=== PATIENT | female | born 1935 | race Caucasian/White ===

== ENCOUNTER 2018-02-21 13:20 | Day surgery (SDC) | payer MEDICARE ==
[~2018-02-21] VITALS: Ht 160 cm; Wt 61.9 kg
[~2018-02-21 13:20] MED LIST: ABAT250V; ALPR1; ALPR1 PO; AMIT10; AMIT75 PO; ASPI325 PO; ATOR10 PO; Bactrim Ds Tab1 EACH PO; CEPH250SUA PO; CONEST.625; CONEST.625 PO; DIGO.25; ESTR2; FURO20; FURO20 PO; HYDACE5 PO; LEVSOD50 PO; LEVSOD75; LEVSOD75 PO; LORA.5 PO; LORA1 PO; MECL25 PO; METO25ER PO; METO50 PO; Micro-K10 MEQ; OMEP20ER PO; OMEPRAZOLE MAGN20 MG; PARICALCITOL1 MCG PO; POTA10T; PRED20 PO; RISE35; ROSU10TA PO; RXHYD5325 PO; SEPTRA DS BID; SIMV20; SULTRIDS; SULTRIDS PO; TRAM50 PO; Zofran Odt8 MG SL
== END 2018-02-21 15:39 | disposition home or self-care (01) ==
LOC: ORSCSDS 13:20
DX: R13.10 Dysphagia, unspecified (principal); K22.2 Esophageal obstruction; K22.10 Ulcer of esophagus without bleeding; I10 Essential (primary) hypertension; G47.33 Obstructive sleep apnea (adult) (pediatric); E07.9 Disorder of thyroid, unspecified; Z79.899 Other long term (current) drug therapy
CPT/HCPCS: 88305; J7120

== ENCOUNTER 2019-07-31 12:34 | Day surgery (SDC) | payer MEDICARE ==
[~2019-07-31] VITALS: Ht 160 cm; Wt 62.6 kg
--- NOTE | 2019-07-31 13:18 | NUR ---
07/31/19 1318 Piper Santillan 1 TRY, VALVE IN WAY 2 TRY NAZARIO KAPOOR
== END 2019-07-31 14:30 | disposition home or self-care (01) ==
LOC: ORSCSDS 12:34
PROVIDERS: Internal Medicine Gastroenterology
PROC: 0DB58ZX Excision of Esophagus, Via Natural or Artificial Opening Endoscopic, Diagnostic (ICD-10-PCS; principal; 2019-07-31 13:45)
PROC: 0D757ZZ Dilation of Esophagus, Via Natural or Artificial Opening (ICD-10-PCS; principal; 2019-07-31 13:45)
DX: R13.10 Dysphagia, unspecified (principal); K20.9 Esophagitis, unspecified; R19.7 Diarrhea, unspecified; I25.2 Old myocardial infarction; I10 Essential (primary) hypertension; G47.30 Sleep apnea, unspecified; J45.909 Unspecified asthma, uncomplicated; D64.9 Anemia, unspecified; K22.2 Esophageal obstruction; K44.9 Diaphragmatic hernia without obstruction or gangrene; Z79.899 Other long term (current) drug therapy
CPT/HCPCS: 88305; J2704; J7120

== ENCOUNTER 2019-11-05 18:50 | Inpatient (IN) | payer MEDICARE ==
[~2019-11-05] VITALS: Ht 160 cm; Wt 60.4 kg
[~2019-11-05 18:50] MED LIST changes: -ATOR10 PO; -LEVSOD50 PO
[2019-11-05] MEDS ORDERED: ESTRADIOL1 M1 PO (22:04)
[2019-11-05] MEDS ORDERED: Alprazolam2 MG PO (22:05)
[2019-11-05] MEDS ORDERED: Hydrocortiso453.6 G1 TOP (22:06)
[2019-11-05] MEDS ORDERED: ATOR40TA PO (22:07)
[2019-11-05] MEDS ORDERED: Sulfamethoxazo1 EAC4 PO (22:07)
[2019-11-05] MEDS ORDERED: FUROSEMIDE20 MG PO (22:08)
[2019-11-05] MEDS ORDERED: Klor-Con 1010 MEQ PO (22:09)
[2019-11-05] MEDS ORDERED: PARI1 PO (22:09)
[2019-11-05] MEDS ORDERED: OMEPRAZOLE20 MG PO (22:10)
[2019-11-05] MEDS ORDERED: METO50ER PO (22:11)
[2019-11-05] MEDS ORDERED: LEVSOD75 PO (22:12)
--- NOTE | 2019-11-05 23:00 | NUR ---
ED ADMIT VIA GUERNEY. A +O CONVERSIVE. AWARE OF MEDS AND W/ SPOUSE HELP RECALLS HEALTH ISSUES AND NEEDS FOR CARE AND DUE TO SEE DR TRIPP THIS WEEK. DENIES ANY PAIN BUT OCCASIONALLY IF MOVING SUDDENLY REPORTS SOME RT RIB PAIN. PER HX . RESP EASY REGULAR. RA WNL SAT. AF AT REST 105. EXTREMELY WEAK AND STAND BY ASSIST. YELLOW STOOL SENT FOR GI PANEL LIQUID STOOL . NO GI DISTRESS AND HS SNACK GIVEN.
[2019-11-06 03:25] LABS: Adenovirus F 40/41 Not Detected (NOT DETECT); Astrovirus Not Detected (NOT DETECT); Campylobacter Sp Not Detected (NOT DETECT); Cryptosporidium Not Detected (NOT DETECT); Cyclospora Cayetanensis Not Detected (NOT DETECT); E. Coli O157 Not Detected (NOT DETECT); Entamoeba Histolytica Not Detected (NOT DETECT); Enteroaggregative E. coli-EAEC Not Detected (NOT DETECT); Enteropathogenic E. coli-EPEC Not Detected (NOT DETECT); Enterotoxigenic E. coli-ETEC Not Detected (NOT DETECT); Giardia Lamblia Not Detected (NOT DETECT); Norovirus GI/GII Not Detected (NOT DETECT); Plesiomonas Shigelloides Not Detected (NOT DETECT); Rotavirus A Not Detected (NOT DETECT); Salmonella Sp Not Detected (NOT DETECT); Sapovirus Not Detected (NOT DETECT); Shiga Toxin-prod E. coli-STEC Not Detected (NOT DETECT); Shigella/Enteroin E. coli-EIEC Not Detected (NOT DETECT); Vibrio Cholerae Not Detected (NOT DETECT); Vibrio Sp Not Detected (NOT DETECT); Yersinia Enterocolitica Not Detected (NOT DETECT)
[2019-11-06 04:11] LABS: BASOPHILS ABSOLUTE AUTO 0.03 K/mm3 (0.00-0.23); BASOPHILS PERCENT AUTO 0 % (0-2); EOSINOPHILS ABSOLUTE AUTO 0.17 K/mm3 (0.00-0.68); EOSINOPHILS PERCENT AUTO 2 % (0-6); Hematocrit 36.2 % (33.0-51.0); IMMATURE GRAN ABSOLUTE AUTO 0.01 K/mm3 (0.00-0.10); IMMATURE GRAN PERCENT AUTO 0 % (0-1); LYMPHOCYTES ABSOLUTE AUTO 4.22 K/mm3 (0.84-5.20); LYMPHOCYTES PERCENT AUTO 51 % (21-46); MONOCYTES ABSOLUTE AUTO 1.03 K/mm3 (0.16-1.47); MONOCYTES PERCENT AUTO 12 % (4-13); Mean Corpuscular HGB 36.1 pg (26.0-34.0); Mean Corpuscular HGB Conc 33.1 g/dL (31.5-36.5); Mean Corpuscular Volume 109 fL (80-100); Mean Platelet Volume 9.2 fL (9.1-12.4); NEUTROPHILS PERCENT AUTO 35 % (41-73); Platelet Count 212 K/mm3 (150-400); RDW Coefficient Variation 12.5 % (11.7-14.2); RDW Standard Deviation 50.3 fL (35.1-46.3); Red Blood Cell Count 3.32 M/mm3 (3.80-5.20); White Blood Cell Count 8.36 K/mm3 (4.00-11.30)
[2019-11-06 04:28] LABS: Bun/Creatinine Ratio 23.9 (12.0-20.0); Calcium, Blood 8.8 mg/dL (8.5-10.1); Creatinine, Blood 1.09 mg/dL (0.40-1.00); Magnesium, Blood 1.9 mg/dL (1.6-2.4); Potassium, Blood 4.1 mmol/L (3.5-5.5)
--- NOTE | 2019-11-06 06:00 | NUR ---
SHIFT SUMMARY. NO CHANGE FROM ABOVE. AWAKE MOST OF NOC AFTER XANAX AND VERY TALKATIVE AND CHEERFUL . AF NOT SUSTAINING OVER 120. AT REST OR WHEN OOB TO BSC. NO PRN IV LOPRESSOR.
--- NOTE | 2019-11-06 17:02 | NUR ---
SHIFT SUMMARY PT ALERT AND ORIENTED. VS STABLE. HR AFIB RANGING FROM 100-120. BP STABLE. PT DENIES ANY CP. O2 SATS REMAIN ABOVE 90% ON RA. PT ABLE TO AMBULATE TO BSC NEEDED. DR. CONDE INCREASED MIND READER DOSE OF METOPROLOL. FAMILY AT BEDSIDE. WILL CONTINUE TO MONITOR AND REPORT TO ONCOMING RN. CALL LIGHT IN REACH.
--- NOTE | 2019-11-06 20:55 | NUR ---
PATIENT CALLED STAFF TO ROOM TO REPORT A PAIN IN LEFT ARMPIT RATED 7/10 [place] THAT LASTED A SECOND WHILE PATIENT WAS LAYING IN BED WATCHING TV; PATIENT REPORTS ALL HER BONES HURT SOMETIMES WHEN TURNING; PATIENT REPORTS SHE WANTED TO LET THE DOCTOR KNOW. PATIENT WILL CALL STAFF IF PAIN OCCURS AGAIN. CHARGE NURSE RADHA AWARE; NO CHANGES ON TELE; WILL CONTINUE TO MONITOR AND ASSESS UNTIL END OF SHIFT.
--- NOTE | 2019-11-06 22:12 | NUR ---
ASSUMED CARE OF PATIENT AT APPROXIMATELY 1905 FROM SHAREE Richards RN. PATIENT ALERT AND ORIENTED X4; FORGETFUL AT TIMES; AT BEDSIDE DURING BEDSIDE REPORT. PATIENT DENIES PAIN, NUMBNESS, TINGLING, DIZZINESS OR NAUSEA. PATIENT REPORTS DIZZINESS SOMETIMES WHENS SHE AMBULATES. SEE PREVIOUS NOTE IN PAIN REPORTED BY PATIENT. AFIB ON TELE W/ A RATE OF 90-115; HEART RATE INCREASES TO 130-140'S WITH AMBULATION TO BEDSIDE COMMODE; RECOVERS QUICKLY. ONE ASSIST TO BEDSIDE COMMODE. OXYGEN SATURATION ABOVE 90% ON ROOM AIR. PIV S/L. PATIENT CURRENTLY RESTING IN BED; NINO LIGHT IN REACH; BED IN LOWEST POSISTION; BED ALARM ON; WILL CONTINUE TO MONITOR AND ASSESS UNTIL END OF SHIFT.
[2019-11-07 04:30] LABS: Bun/Creatinine Ratio 23.5 (12.0-20.0); Calcium, Blood 9.2 mg/dL (8.5-10.1); Creatinine, Blood 1.02 mg/dL (0.40-1.00)
[2019-11-07 04:35] LABS: Thyroid Stimulating Hormone 1.57 uIU/mL (0.360-4.800)
--- NOTE | 2019-11-07 06:18 | NUR ---
PATIENT HAS SLEPT ABOUT THREE HOURS. PATIENT REPORTS SHE CANNOT SLEEP DUE TO SCDS, FREQUENCY OF URINATING AND HEART RATE. PATIENT REPORTS SHE WOKE UP WITH CALL LIGHT IN HAND AND HAD HIT HER CHIP WHILE SHE WAS SLEEPING; "I THOUGHT I CHIPPED A TOOTH". NO CHIP TOOTH NOTED. WILL CONTINUE TO MONITOR AND ASSESS UNTIL END OF SHIFT.
--- NOTE | 2019-11-07 08:00 | NUR ---
pt laying in bed awake a/ox3, pleasant and cooperative with care, follows commands well, denies pain, states she didn't sleep much last night, lungs are clear dim in bases, resp even and unlabord, is on r/a, hrirr, tele in place running afib in the 120's to 130's, is higher with any activity, no edema noted, ppp+1, cap refill <3sec, vs stable, afebrile, iv site to left ac is clear and patent, btx4, abd flat soft nontender, voids without diff, skin c/w/d, maew, kingsley, call light in reach.
--- NOTE | 2019-11-07 11:51 | NUR ---
The pt called saying that she was feeling chest pressure and difficulty breathing. Heart rate is 100s, still atrial fibrillation, but rate better controlled since she has been on the amiodarone drip. Lung sounds auscultated, and no adventitious sound noted save for fine inspiratory crackles in the left base. She is lying down, HOB elevated at 30 degrees, no use of accessory muscles, no retractions, RR is 14-16/min without any observable dyspnea or abnormal respiratory effort. She is able to sit up so that I can listen to her lung sounds, but lies back down and states that her breathing and discomfort are unchanged and that lying down is more comfortable for her. Vital signs were taken, and sent via CApsule. She states that her discomfort started 15 minutes ago. She appears calm, and is carry on lots of conversation. Able to complete full sentences without stopping for a breath.
--- NOTE | 2019-11-07 12:16 | NUR ---
New orders received from Dr. Butler by phone. EKG was done, shows afib at 100 bpm. SPO2 99% on room air, Oxygen at 2 l/min applied by n.c. by primary RN Sandra Huang. IV lasix was given as ordered, and troponin is being drawn at this time by the surgical tech. Pt continues to appear calm, without distress. She states that her breathing still feels as difficult as before, but that her chest pressure is lessened. STates he is having a hard time quanitfying the discomfort. She is lying in bed, supine, no accesory muscle use, no retractions, respiratory rate is 16/min and HOB is elevated at30 degrees. She states that she wants to eat after she uses the commode at the bedside.
--- NOTE | 2019-11-07 14:00 | NUR ---
PT FEELING BETTER, UP TO BSC WITHOUT DIFF, NO NEEDS OR COMPLAINTS, RATES COMING DOWN. CALL LIGHT IN REACH.
--- NOTE | 2019-11-07 18:17 | NUR ---
PT VISITING WITH HER FAMILY, DENIES ANY COMPLAINTS. IS CONFUSED TO HER MEDS, AND WILL ASK A NUMBER OF TIMES WHAT IT IS. NO FURTHER CHANGES, CALL LIGHT IN REACH.
--- NOTE | 2019-11-08 05:56 | NUR ---
SHIFT SUMMARY PT RESTING IN ROOM COMFORTABLY AT THIS TIME. NO ACUTE CHANGES IN STATUS T/O NIGHT. PT SLEPT WELL AFTER BEING MEDICATED FOR ANXIETY AT 2330. RESP EVEN UNLABORED ON RA W/ SATS >92%. PT REPORTED FEELING "FLUTTERING" IN HER CHEST EARLY IN SHIFT AND THAT "MY HEART FEELS EXHAUSTED". PT EDUCATED ON IRREGULARITY OF AFIB AND SYMPTOMS THAT MAY BE FELT UNTIL HEART RHYTHM CONVERTS. AMIODARONE CONTINUES TO INFUSE AT HALF DOSE PER EMAR. TITRATION IN DOSE WAS LATE ON DAY SHIFT, [facility] WAS CALLED AND ORDERS TO STOP GTT AT 0900 THIS AM TO COMPENSATE. WILL REPORT ON TO ONCOMING RN ABOUT CHANGE IN STOP TIME. PT WAS CONFUSED THIS AM BUT REORIENTED WELL. BED ALARM ON FOR SAFETY. CALL LIGHT IN REACH.
--- NOTE | 2019-11-08 07:30 | NUR ---
ASSUMED CARE OF PT. IN NO ACUTE DISTRESS AT THIS TIME, DENIES ANY PAIN OR DISCOMFORT. DENIES ANY NEEDS AT THIS TIME. WILL CONTINUE TO MONITOR.
--- NOTE | 2019-11-08 08:16 | NUR ---
PT CONVERTED TO NORMAL SINUS RHYTHM AT 0730. DR. PIZANO CALLED TO NOTIFY OF RHYTHM CHANGE. ORDERS RECEIVED.
--- NOTE | 2019-11-08 11:36 | NUR ---
HAD A CONVERSATION WITH PT REGARDING PLAN FOR DISCHARGE. PT STATES "I'M ANGRY. THAT DOCTOR THAT CAME INTO SEE ME HAD NO BUSINESS TELLING ME THAT SHE WAS GOING TO SEND ME HOME WITHOUT KNOWING WHAT WAS GOING ON ACCORDING TO THE NURSES THAT WERE TAKING CARE OF ME. I THOUGHT I HAD MORE TESTS TO BE DONE BEFORE GOING HOME, NO ONE SAID ANYTHING TO ME. I DON'T WANT TO SEE THAT DOCTOR EVER AGAIN." INFORMED PT OF PLAN TO DISCHARGE HOME AND ENCOURAGED TO CONTACT FAMILY.
[2019-11-08] MEDS ORDERED: Amiodarone HCl200 MG PO (12:28)
[2019-11-08] MEDS ORDERED: XARELTO15 MG PO (12:30)
[2019-11-08] MEDS ORDERED: FURO20 PO (12:32)
[2019-11-08] MEDS ORDERED: METO25 PO (12:32)
--- NOTE | 2019-11-08 13:45 | NUR ---
PT DISCHARGED HOME WITH , ESCORTED VIA W/C. ALL PERSONAL BELONGINGS SENT HOME WITH PT. IV AND TELEMETRY DISCONTINUED.
== END 2019-11-08 13:43 | disposition home or self-care (01) | DRG 308 ==
LOC: ER 18:50 → PCU 18:51
PROVIDERS: Internal Medicine; ADMIT Family Medicine
DX: I48.91 Unspecified atrial fibrillation (principal); I50.31 Acute diastolic (congestive) heart failure; I13.0 Hypertensive heart and chronic kidney disease with heart failure and stage 1 through stage 4 chronic kidney disease, or unspecified chronic kidney disease; M31.31 Wegener's granulomatosis with renal involvement; N18.3 Chronic kidney disease, stage 3 (moderate); F41.9 Anxiety disorder, unspecified; E03.9 Hypothyroidism, unspecified; E78.5 Hyperlipidemia, unspecified; I36.1 Nonrheumatic tricuspid (valve) insufficiency; K52.9 Noninfective gastroenteritis and colitis, unspecified; R07.9 Chest pain, unspecified; I08.3 Combined rheumatic disorders of mitral, aortic and tricuspid valves
CPT/HCPCS: 0097U; 36415; 71046; 80048; 80053; 83735; 83880; 84443; 84484; 85025; 93005; 93010; 93308; 93321; 96374; 96376; 97162; 97530; 99285-25; G0378; J0282; J1940; J2405; J7060

== ENCOUNTER → 2020-08-04 | Outpatient (CLI) | payer MEDICARE ==
[~2020-08-04] MED LIST changes: +ATOR40TA PO; +Alprazolam2 MG PO; +Amiodarone HCl200 MG PO; +CYCL10 PO; +DOCU100 PO; +ESTRADIOL1 M1 PO; +FUROSEMIDE20 MG PO; +HYDROCORTISONE30 GM TOP; +Hydrocortiso453.6 G1 TOP; +Klor-Con 1010 MEQ PO; +METO25 PO; +METO50ER PO; +Norco 5-325 Ta1 EACH PO; +OMEPRAZOLE20 MG PO; +ONDA4ODT SL; +PARI1 PO; +Sulfamethoxazo1 EAC4 PO; +XARELTO15 MG PO; +XARELTO20 MG PO
[2020-08-04 15:28] LABS: Source, Urine Catheter
[2020-08-04 17:02] LABS: Bilirubin, Urine Neg (Neg); Blood, Urine 4+ (Neg); Glucose Qualitative, Urine Neg (Neg); Ketones, Urine Neg (Neg); Leukocyte Esterase, Urine 3+ (Neg); Nitrite, Urine Neg (Neg); Protein, Urine Neg (Neg); Specific Gravity, Urine 1.005 (1.003-1.022); Urobilinogen, Urine NORM (Normal)
[2020-08-04 17:09] LABS: Appearance, Urine Hazy (Clear); Color, Urine Pale Yellow (P-Yellow)
[2020-08-04 17:10] LABS: Bacteria Many /hpf; Squamous Epithelial Cells Few /hpf (Few); White Blood Cells, Urine TNTC /hpf (0-5)
== END | disposition home or self-care (01) ==
LOC: LAB SHORT 15:23 → LAB 15:23
PROVIDERS: Internal Medicine
DX: R50.9 Fever, unspecified (principal); R53.1 Weakness; R82.90 Unspecified abnormal findings in urine
CPT/HCPCS: 81001; 87077; 87086; 87186

== ENCOUNTER → 2020-08-07 | Outpatient (CLI) | payer MEDICARE ==
[2020-08-07 17:11] LABS: BASOPHILS ABSOLUTE AUTO 0.04 K/mm3 (0.00-0.23); BASOPHILS PERCENT AUTO 1 % (0-2); EOSINOPHILS ABSOLUTE AUTO 0.13 K/mm3 (0.00-0.68); EOSINOPHILS PERCENT AUTO 2 % (0-6); Hematocrit 33.7 % (33.0-51.0); Hemoglobin 10.9 g/dL (11.5-16.0); IMMATURE GRAN ABSOLUTE AUTO 0.03 K/mm3 (0.00-0.10); IMMATURE GRAN PERCENT AUTO 0 % (0-1); LYMPHOCYTES ABSOLUTE AUTO 1.69 K/mm3 (0.84-5.20); LYMPHOCYTES PERCENT AUTO 22 % (21-46); MONOCYTES ABSOLUTE AUTO 1.27 K/mm3 (0.16-1.47); MONOCYTES PERCENT AUTO 17 % (4-13); Mean Corpuscular HGB Conc 32.3 g/dL (31.5-36.5); Mean Corpuscular Volume 111 fL (80-100); Mean Platelet Volume 8.5 fL (9.1-12.4); NEUTROPHILS ABSOLUTE AUTO 4.44 K/mm3 (1.96-9.15); NEUTROPHILS PERCENT AUTO 59 % (41-73); Platelet Count 294 K/mm3 (150-400); RDW Coefficient Variation 14.1 % (11.7-14.2); RDW Standard Deviation 58.2 fL (35.1-46.3); Red Blood Cell Count 3.03 M/mm3 (3.80-5.20)
[2020-08-07 17:47] LABS: Alanine Aminotransfer (ALT/SGP 21 U/L (12-78); Albumin, Blood 3.1 g/dL (3.4-5.0); Albumin/Globulin Ratio 0.7 (0.8-1.8); Alk Phos 126 U/L (50-136); Anion Gap 8 mmol/L (6-16); Aspartate Aminotrans (AST/SGOT 16 U/L (12-37); Bilirubin, Total 0.2 mg/dL (0.1-1.0); Blood Urea Nitrogen 27 mg/dL (8-24); Bun/Creatinine Ratio 24.3 (12.0-20.0); CO2, Blood 25 mmol/L (21-32); Calcium, Blood 9.2 mg/dL (8.5-10.1); Chloride, Blood 108 mmol/L (98-108); Creatinine, Blood 1.11 mg/dL (0.40-1.00); Globulin, Blood 4.4 g/dL (2.2-4.0); Glomerular Filtration Rate 50 (60-); Glucose, Blood 83 mg/dL (70-99); Potassium, Blood 4.4 mmol/L (3.5-5.5); Sodium, Blood 141 mmol/L (136-145); Total Protein, Blood 7.5 g/dL (6.4-8.2)
== END | disposition home or self-care (01) ==
LOC: LAB 16:00 → LAB SHORT 16:00
PROVIDERS: Internal Medicine
DX: Z79.01 Long term (current) use of anticoagulants (principal); Z51.81 Encounter for therapeutic drug level monitoring; R50.9 Fever, unspecified; R53.1 Weakness; I13.0 Hypertensive heart and chronic kidney disease with heart failure and stage 1 through stage 4 chronic kidney disease, or unspecified chronic kidney disease; I50.30 Unspecified diastolic (congestive) heart failure; N18.30 Chronic kidney disease, stage 3 unspecified; I48.20 Chronic atrial fibrillation, unspecified
CPT/HCPCS: 80053; 84100; 85025

== ENCOUNTER 2021-11-21 17:35 | Emergency (ER) | payer MEDICARE, OTHER ==
[~2021-11-21] VITALS: Ht 160 cm; Wt 59.0 kg
[2021-11-21 18:47] LABS: BASOPHILS ABSOLUTE AUTO 0.03 K/mm3 (0.00-0.23); BASOPHILS PERCENT AUTO 0 % (0-2); EOSINOPHILS ABSOLUTE AUTO 0.06 K/mm3 (0.00-0.68); EOSINOPHILS PERCENT AUTO 1 % (0-6); Hematocrit 34.1 % (33.0-51.0); Hemoglobin 11.4 g/dL (11.5-16.0); IMMATURE GRAN ABSOLUTE AUTO 0.03 K/mm3 (0.00-0.10); IMMATURE GRAN PERCENT AUTO 0 % (0-1); LYMPHOCYTES ABSOLUTE AUTO 1.58 K/mm3 (0.84-5.20); LYMPHOCYTES PERCENT AUTO 16 % (21-46); MONOCYTES ABSOLUTE AUTO 1.16 K/mm3 (0.16-1.47); MONOCYTES PERCENT AUTO 12 % (4-13); Mean Corpuscular HGB 37.9 pg (26.0-34.0); Mean Corpuscular HGB Conc 33.4 g/dL (31.5-36.5); Mean Corpuscular Volume 113 fL (80-100); Mean Platelet Volume 8.8 fL (9.1-12.4); NEUTROPHILS ABSOLUTE AUTO 6.89 K/mm3 (1.96-9.15); NEUTROPHILS PERCENT AUTO 71 % (41-73); Platelet Count 237 K/mm3 (150-400); RDW Coefficient Variation 13.1 % (11.7-14.2); Red Blood Cell Count 3.01 M/mm3 (3.80-5.20); White Blood Cell Count 9.75 K/mm3 (4.00-11.30)
[2021-11-21 19:01] LABS: Source, Urine Condom Cath
[2021-11-21 19:09] LABS: Appearance, Urine Clear (Clear); Bilirubin, Urine Neg (Neg); Blood, Urine 1+ (Neg); Color, Urine Yellow (P-Yellow); Glucose Qualitative, Urine Neg (Neg); Ketones, Urine Neg (Neg); Leukocyte Esterase, Urine 2+ (Neg); Nitrite, Urine Pos (Neg); Protein, Urine Neg (Neg); Urobilinogen, Urine NORM (Normal)
[2021-11-21 19:17] LABS: Bacteria Many /hpf; Mucus Light (0-Heavy); Squamous Epithelial Cells Few /hpf (Few)
[2021-11-21 19:18] LABS: Amorphous Light (0-Heavy)
[2021-11-21 19:19] LABS: U Amphetamine Screen Not Detected; U Barbituate Screen Not Detected; U Benzodiazapine Screen DETECTED; U Buprenorphine Screen Not Detected; U Cannabinoids Screen Not Detected; U Cocaine Screen Not Detected; U Methadone Screen Not Detected; U Methamphetamine Screen Not Detected; U Opiates Screen Not Detected; U Oxycodone Screen Not Detected; U Phencyclidine Screen Not Detected; U Propoxyphene Screen Not Detected
[2021-11-21 19:25] LABS: Albumin, Blood 3.3 g/dL (3.4-5.0); Albumin/Globulin Ratio 0.9 (0.8-1.8); Bilirubin, Total 0.4 mg/dL (0.1-1.0); Bun/Creatinine Ratio 28.3 (12.0-20.0); Calcium, Blood 8.8 mg/dL (8.5-10.1); Creatinine, Blood 1.13 mg/dL (0.40-1.00); Globulin, Blood 3.5 g/dL (2.2-4.0); Potassium, Blood 3.8 mmol/L (3.5-5.5); Total Protein, Blood 6.8 g/dL (6.4-8.2)
[2021-11-21 19:30] LABS: Thyroid Stimulating Hormone 1.85 uIU/mL (0.360-4.800)
== END 2021-11-21 21:15 | disposition home or self-care (01) ==
LOC: ER 17:35
PROVIDERS: Student in an Organized Health Care Education/Training Program
DX: N39.0 Urinary tract infection, site not specified (principal); R41.0 Disorientation, unspecified; F13.20 Sedative, hypnotic or anxiolytic dependence, uncomplicated; E78.5 Hyperlipidemia, unspecified; I10 Essential (primary) hypertension; E03.9 Hypothyroidism, unspecified; K21.9 Gastro-esophageal reflux disease without esophagitis; I48.91 Unspecified atrial fibrillation; Z79.899 Other long term (current) drug therapy
CPT/HCPCS: 70450; 80053; 81001; 84443; 85025; 87077; 87086; 87186; 93005; 93010; 99285-25; A9270

== ENCOUNTER 2022-02-11 20:34 | Emergency (ER) | payer MEDICARE, OTHER ==
[~2022-02-11] VITALS: Ht 160 cm; Wt 54.4 kg
[2022-02-11 21:50] LABS: BASOPHILS ABSOLUTE AUTO 0.04 K/mm3 (0.00-0.23); BASOPHILS PERCENT AUTO 1 % (0-2); EOSINOPHILS ABSOLUTE AUTO 0.19 K/mm3 (0.00-0.68); EOSINOPHILS PERCENT AUTO 2 % (0-6); Hematocrit 36.5 % (33.0-51.0); Hemoglobin 11.9 g/dL (11.5-16.0); IMMATURE GRAN ABSOLUTE AUTO 0.01 K/mm3 (0.00-0.10); IMMATURE GRAN PERCENT AUTO 0 % (0-1); LYMPHOCYTES ABSOLUTE AUTO 2.55 K/mm3 (0.84-5.20); LYMPHOCYTES PERCENT AUTO 31 % (21-46); MONOCYTES ABSOLUTE AUTO 1.18 K/mm3 (0.16-1.47); MONOCYTES PERCENT AUTO 15 % (4-13); Mean Corpuscular HGB 35.3 pg (26.0-34.0); Mean Corpuscular HGB Conc 32.6 g/dL (31.5-36.5); Mean Corpuscular Volume 108 fL (80-100); Mean Platelet Volume 8.6 fL (9.1-12.4); NEUTROPHILS ABSOLUTE AUTO 4.17 K/mm3 (1.96-9.15); NEUTROPHILS PERCENT AUTO 51 % (41-73); Platelet Count 303 K/mm3 (150-400); RDW Coefficient Variation 13.6 % (11.7-14.2); RDW Standard Deviation 54.7 fL (35.1-46.3); Red Blood Cell Count 3.37 M/mm3 (3.80-5.20); White Blood Cell Count 8.14 K/mm3 (4.00-11.30)
[2022-02-11 22:04] LABS: Alanine Aminotransfer (ALT/SGP 19 U/L (12-78); Albumin, Blood 3.2 g/dL (3.4-5.0); Albumin/Globulin Ratio 0.8 (0.8-1.8); Alk Phos 79 U/L (50-136); Anion Gap 5 mmol/L (6-16); Aspartate Aminotrans (AST/SGOT 17 U/L (12-37); Bilirubin, Total 0.5 mg/dL (0.1-1.0); Blood Urea Nitrogen 20 mg/dL (8-24); Bun/Creatinine Ratio 23.9 (12.0-20.0); CO2, Blood 28 mmol/L (21-32); Calcium, Blood 8.9 mg/dL (8.5-10.1); Chloride, Blood 106 mmol/L (98-108); Creatinine, Blood 0.84 mg/dL (0.40-1.00); Globulin, Blood 4.2 g/dL (2.2-4.0); Glomerular Filtration Rate >60 (60-); Glucose, Blood 82 mg/dL (70-99); Potassium, Blood 4.2 mmol/L (3.5-5.5); Sodium, Blood 139 mmol/L (136-145); Total Protein, Blood 7.4 g/dL (6.4-8.2)
[2022-03-05] MEDS ORDERED: K-Dur20 MEQ PO (16:39)
[2022-03-11] MEDS ORDERED: CEFD300 PO (22:22)
== END 2022-02-11 23:05 | disposition left against medical advice (07) ==
LOC: ER 20:34
PROVIDERS: Student in an Organized Health Care Education/Training Program
DX: R06.02 Shortness of breath (principal); R07.9 Chest pain, unspecified; Z53.21 Procedure and treatment not carried out due to patient leaving prior to being seen by health care provider
CPT/HCPCS: 36415; 71045; 80053; 84484; 85025; 93005; 93010; 99282-25

== ENCOUNTER 2022-03-05 10:44 | Inpatient (IN) | payer MEDICARE, OTHER ==
[~2022-03-05] VITALS: Ht 160 cm; Wt 55.6 kg
[2022-03-05 11:10] LABS: BASOPHILS ABSOLUTE AUTO 0.04 K/mm3 (0.00-0.23); BASOPHILS PERCENT AUTO 1 % (0-2); EOSINOPHILS ABSOLUTE AUTO 0.03 K/mm3 (0.00-0.68); EOSINOPHILS PERCENT AUTO 0 % (0-6); Hematocrit 33.7 % (33.0-51.0); Hemoglobin 10.9 g/dL (11.5-16.0); IMMATURE GRAN ABSOLUTE AUTO 0.02 K/mm3 (0.00-0.10); IMMATURE GRAN PERCENT AUTO 0 % (0-1); LYMPHOCYTES ABSOLUTE AUTO 1.34 K/mm3 (0.84-5.20); LYMPHOCYTES PERCENT AUTO 16 % (21-46); MONOCYTES ABSOLUTE AUTO 0.95 K/mm3 (0.16-1.47); MONOCYTES PERCENT AUTO 12 % (4-13); Mean Corpuscular HGB 34.3 pg (26.0-34.0); Mean Corpuscular HGB Conc 32.3 g/dL (31.5-36.5); Mean Corpuscular Volume 106 fL (80-100); Mean Platelet Volume 8.7 fL (9.1-12.4); NEUTROPHILS ABSOLUTE AUTO 5.77 K/mm3 (1.96-9.15); NEUTROPHILS PERCENT AUTO 71 % (41-73); Platelet Count 252 K/mm3 (150-400); RDW Coefficient Variation 13.6 % (11.7-14.2); RDW Standard Deviation 53.2 fL (35.1-46.3); Red Blood Cell Count 3.18 M/mm3 (3.80-5.20); White Blood Cell Count 8.15 K/mm3 (4.00-11.30)
[2022-03-05 11:31] LABS: Alanine Aminotransfer (ALT/SGP 19 U/L (12-78); Albumin, Blood 3.2 g/dL (3.4-5.0); Albumin/Globulin Ratio 0.8 (0.8-1.8); Alk Phos 69 U/L (50-136); Anion Gap 7 mmol/L (6-16); Aspartate Aminotrans (AST/SGOT 17 U/L (12-37); Bilirubin, Total 0.7 mg/dL (0.1-1.0); Blood Urea Nitrogen 22 mg/dL (8-24); Bun/Creatinine Ratio 28.1 (12.0-20.0); CO2, Blood 26 mmol/L (21-32); Calcium, Blood 8.2 mg/dL (8.5-10.1); Chloride, Blood 105 mmol/L (98-108); Creatinine, Blood 0.78 mg/dL (0.40-1.00); Globulin, Blood 3.8 g/dL (2.2-4.0); Glomerular Filtration Rate >60 (60-); Glucose, Blood 94 mg/dL (70-99); Potassium, Blood 3.9 mmol/L (3.5-5.5); Sodium, Blood 138 mmol/L (136-145)
[2022-03-05 12:09] LABS: Influenza A, PCR NEGATIVE (NEGATIVE); Influenza B, PCR NEGATIVE (NEGATIVE); Resp Syncytial Virus, PCR NEGATIVE (NEGATIVE); SARS-Cov-2 (COVID-19) PCR, MMC NEGATIVE (NEGATIVE)
[2022-03-05] MEDS ORDERED: ESTRADIOL1 MG PO (12:33)
[2022-03-05] MEDS ORDERED: MELA3 PO (12:33)
[2022-03-05] MEDS ORDERED: CITALOPRAM HBR10 MG PO (12:33)
[2022-03-05] MEDS ORDERED: FURO40 PO (12:34)
[2022-03-05] MEDS ORDERED: ATOR40TA PO (16:38)
[2022-03-05] MEDS ORDERED: Amiodarone HCl200 MG PO (16:38)
[2022-03-05] MEDS ORDERED: KLOR-CON 1010 ME7 PO (16:39)
[2022-03-05] MEDS ORDERED: CARBIDOPA-LEVO1 EA15 PO (16:39)
[2022-03-05] MEDS ORDERED: OMEP20ER PO (16:39)
[2022-03-05] MEDS ORDERED: SULFAMETHOXAZO1 EAC1 PO (16:39)
--- NOTE | 2022-03-05 18:50 | NUR ---
Pt. is in bed and welcomed my visit. Pt. is pleasant. Established rapport. Pts. spouse and son came in. Prayed with family. All verbalized gratitude for the spiritual care visit.
--- NOTE | 2022-03-06 04:05 | NUR ---
Patient with VSS on 6L lupe flow, humidified O2 overnight. Continous pulse ox in place. Patient on 3.5L O2 at my arrival but was not maintaining her O2 sats. Patient refused to wear the CPAP machine overnight. Patient incontinent of urine. She had high urine out put and overwhelmed the purewick often so I am unable to obtain accurate output. Patient alert and oriented x4. No acute skin issues noted. Lungs with crackles in LLL overnight, remained stable. Bedrest.
[2022-03-06 04:58] LABS: BASOPHILS ABSOLUTE AUTO 0.03 K/mm3 (0.00-0.23); BASOPHILS PERCENT AUTO 0 % (0-2); EOSINOPHILS ABSOLUTE AUTO 0.15 K/mm3 (0.00-0.68); EOSINOPHILS PERCENT AUTO 2 % (0-6); Hematocrit 32.6 % (33.0-51.0); Hemoglobin 10.6 g/dL (11.5-16.0); IMMATURE GRAN ABSOLUTE AUTO 0.01 K/mm3 (0.00-0.10); IMMATURE GRAN PERCENT AUTO 0 % (0-1); LYMPHOCYTES ABSOLUTE AUTO 1.92 K/mm3 (0.84-5.20); LYMPHOCYTES PERCENT AUTO 23 % (21-46); MONOCYTES ABSOLUTE AUTO 1.39 K/mm3 (0.16-1.47); MONOCYTES PERCENT AUTO 17 % (4-13); Mean Corpuscular HGB 34.3 pg (26.0-34.0); Mean Corpuscular HGB Conc 32.5 g/dL (31.5-36.5); Mean Corpuscular Volume 106 fL (80-100); NEUTROPHILS ABSOLUTE AUTO 4.79 K/mm3 (1.96-9.15); NEUTROPHILS PERCENT AUTO 58 % (41-73); Platelet Count 249 K/mm3 (150-400); RDW Coefficient Variation 13.5 % (11.7-14.2); RDW Standard Deviation 52.7 fL (35.1-46.3); Red Blood Cell Count 3.09 M/mm3 (3.80-5.20); White Blood Cell Count 8.29 K/mm3 (4.00-11.30)
[2022-03-06 05:16] LABS: Albumin/Globulin Ratio 0.9 (0.8-1.8); Bilirubin, Total 0.7 mg/dL (0.1-1.0); Bun/Creatinine Ratio 25.1 (12.0-20.0); Calcium, Blood 8.4 mg/dL (8.5-10.1); Creatinine, Blood 0.96 mg/dL (0.40-1.00); Globulin, Blood 3.5 g/dL (2.2-4.0); Potassium, Blood 3.3 mmol/L (3.5-5.5); Total Protein, Blood 6.5 g/dL (6.4-8.2)
--- NOTE | 2022-03-06 18:42 | NUR ---
SHIFT SUMMARY PT IS ALERT AND ORIENTEDx4. INITIALLY THIS MORNING PT REQUIRED INCREASE IN O2 USE AND WAS PLACED ON 8L OF O2 BY RT. BY THIS AFTERNOON PT WAS ABLE TO BE TITRATED DOWN TO 6L. PT HAD LARGE AMOUNTS OF URINE, BUT WAS MOSTLY INCONTINENT AND UNABLE TO BE MEASURED FOR DIURETIC OUTPUT. PT WAS ABLE TO GET UP TO CHAIR AND SIT FOR COUPLE OF HOURS TODAY BEFORE TIRING OUT AND RETURNING TO BED. TELEMETRY SHOWS PT TO BE IN SINUS RHTYHM. VITALS HAVE BEEN STABLE.
--- NOTE | 2022-03-07 04:52 | NUR ---
SHIFT SUMMARY ADMITTED FOR SOB. FULL CODE. SHE IS BEING DIURESED. PLAN IS FOR DC HOME WHEN STABLE. TELEMETRY: NSR @ 81 BPM. BLE EDEMA 2+. HX OF FALLS, BED ALARM IS ACTIVE. A&O X4, FORGETFUL. 1 ASSIST TO BSC. 6 LPM O2 THIS SHIFT. CARDIAC DIET.
[2022-03-07 05:03] LABS: BASOPHILS ABSOLUTE AUTO 0.04 K/mm3 (0.00-0.23); BASOPHILS PERCENT AUTO 0 % (0-2); EOSINOPHILS PERCENT AUTO 1 % (0-6); Hematocrit 33.4 % (33.0-51.0); Hemoglobin 10.9 g/dL (11.5-16.0); IMMATURE GRAN ABSOLUTE AUTO 0.02 K/mm3 (0.00-0.10); IMMATURE GRAN PERCENT AUTO 0 % (0-1); LYMPHOCYTES ABSOLUTE AUTO 2.18 K/mm3 (0.84-5.20); LYMPHOCYTES PERCENT AUTO 21 % (21-46); MONOCYTES ABSOLUTE AUTO 1.77 K/mm3 (0.16-1.47); MONOCYTES PERCENT AUTO 17 % (4-13); Mean Corpuscular HGB 34.5 pg (26.0-34.0); Mean Corpuscular HGB Conc 32.6 g/dL (31.5-36.5); Mean Corpuscular Volume 106 fL (80-100); Mean Platelet Volume 9.2 fL (9.1-12.4); NEUTROPHILS ABSOLUTE AUTO 6.11 K/mm3 (1.96-9.15); NEUTROPHILS PERCENT AUTO 60 % (41-73); Platelet Count 267 K/mm3 (150-400); RDW Coefficient Variation 13.4 % (11.7-14.2); RDW Standard Deviation 53.1 fL (35.1-46.3); Red Blood Cell Count 3.16 M/mm3 (3.80-5.20); White Blood Cell Count 10.22 K/mm3 (4.00-11.30)
[2022-03-07 05:23] LABS: Bun/Creatinine Ratio 27.6 (12.0-20.0); Calcium, Blood 8.7 mg/dL (8.5-10.1); Creatinine, Blood 0.91 mg/dL (0.40-1.00); Potassium, Blood 3.7 mmol/L (3.5-5.5)
--- NOTE | 2022-03-07 08:00 | NUR ---
Pt laying in bed watching tv, a/ox3, forgetful, pleasant and cooperative with care, follows commands well,d denies pain, states she feels about the same as when she came in, lungs are clear in upper [place], dim in bases, on 1.5 liters 02 via n/c, resp even and unlabored no cough noted, hrr, tele in place running sr per monitor, see strip, trace edema noted to b/l le, ppp+1 cap refill< 3sec, vs stable, afebrile, piv site to rac is clear and patent, btx4, abd flat soft nontender, voids without diff, skin c/w/d, maew, kingsley, call light in reach.
--- NOTE | 2022-03-07 18:10 | NUR ---
pt very pleasant and appreciative of care. 02 down to 4 liters from 7. did remove it this afternoon and sats were 88%. no further changes this shift, call light in reach.
[2022-03-08 04:31] LABS: BASOPHILS ABSOLUTE AUTO 0.04 K/mm3 (0.00-0.23); BASOPHILS PERCENT AUTO 1 % (0-2); EOSINOPHILS ABSOLUTE AUTO 0.13 K/mm3 (0.00-0.68); EOSINOPHILS PERCENT AUTO 2 % (0-6); Hematocrit 35.1 % (33.0-51.0); Hemoglobin 11.5 g/dL (11.5-16.0); IMMATURE GRAN ABSOLUTE AUTO 0.02 K/mm3 (0.00-0.10); IMMATURE GRAN PERCENT AUTO 0 % (0-1); LYMPHOCYTES ABSOLUTE AUTO 2.26 K/mm3 (0.84-5.20); LYMPHOCYTES PERCENT AUTO 28 % (21-46); MONOCYTES ABSOLUTE AUTO 1.49 K/mm3 (0.16-1.47); MONOCYTES PERCENT AUTO 19 % (4-13); Mean Corpuscular HGB Conc 32.8 g/dL (31.5-36.5); Mean Corpuscular Volume 107 fL (80-100); Mean Platelet Volume 9.1 fL (9.1-12.4); NEUTROPHILS ABSOLUTE AUTO 4.13 K/mm3 (1.96-9.15); NEUTROPHILS PERCENT AUTO 51 % (41-73); Platelet Count 273 K/mm3 (150-400); RDW Coefficient Variation 13.5 % (11.7-14.2); RDW Standard Deviation 53.5 fL (35.1-46.3); Red Blood Cell Count 3.29 M/mm3 (3.80-5.20); White Blood Cell Count 8.07 K/mm3 (4.00-11.30)
[2022-03-08 04:54] LABS: Anion Gap 6 mmol/L (6-16); Blood Urea Nitrogen 23 mg/dL (8-24); Bun/Creatinine Ratio 27.5 (12.0-20.0); CO2, Blood 31 mmol/L (21-32); Calcium, Blood 8.8 mg/dL (8.5-10.1); Chloride, Blood 102 mmol/L (98-108); Creatinine, Blood 0.84 mg/dL (0.40-1.00); Glomerular Filtration Rate >60 (60-); Glucose, Blood 100 mg/dL (70-99); Potassium, Blood 3.9 mmol/L (3.5-5.5); Sodium, Blood 139 mmol/L (136-145)
--- NOTE | 2022-03-08 05:59 | NUR ---
SHIFT SUMMARY PATIETN RESTED THROUGHOUT THE NIGHT, A&O X2, ABLE TO FOLLOW DIRECTIONS BUT IS FORGETFUL, DENIES PAIN AND SHORTNESS OF BREATH, VSS ON 4 L NC AT THE BEGINNING OF THE SHIFT, ABLE TO TITRATE PATIENT O2 DOWN TO 1 L NC AT THIS TIME, O2 SATS NOTED AT 94% ON 1 L NC, HOWEVER WHEN O2 IS REMOVED O2 SATS DECREASE TO 87-89%, ON TELE NOTED NSR 70-80, UP TO THE BSC MULTIPLE TIMES THIS SHIFT, CONTINUES TO DIURESE WELL, CONTINENT THROUGHOUT THE NIGHT
[2022-03-08] MEDS ORDERED: ALPR.5 PO (13:24)
--- NOTE | 2022-03-08 15:56 | NUR ---
D/C NOTE D/C ORDERS REVIEVED AND REVIEWED. REFERRAL TO [facility] INITATED. D/C ORDERS, EDUCATION AND MEDICATIONS REVIEWED WITH PT AND HER SON. RX SENT TO PT'S PHARMACY OF CHOICE. HOME O2 DELIVERED AND IV REMOVED INTACT WITHOUT DIFFICULTY. PT ESCORTED OUT VIA W/C AND TRANSPORTED HOME VIA PRIVATE VEHICLE BY SON.
[2022-03-11] MEDS ORDERED: CEFD300 PO (22:22)
== END 2022-03-08 15:55 | disposition home health service (06) | DRG 291 ==
LOC: ER 10:44 → MEDS 13:06
PROVIDERS: Emergency Medicine; ADMIT Family Medicine
PROC: 5A09357 Assistance with Respiratory Ventilation, Less than 24 Consecutive Hours, Continuous Positive Airway Pressure (ICD-10-PCS; principal; 2022-03-05)
DX: I13.0 Hypertensive heart and chronic kidney disease with heart failure and stage 1 through stage 4 chronic kidney disease, or unspecified chronic kidney disease (principal); J96.91 Respiratory failure, unspecified with hypoxia; I50.33 Acute on chronic diastolic (congestive) heart failure; Z20.822 Contact with and (suspected) exposure to COVID-19; I48.91 Unspecified atrial fibrillation; E87.6 Hypokalemia; D63.1 Anemia in chronic kidney disease; E53.8 Deficiency of other specified B group vitamins; G20 Parkinson's disease; N18.30 Chronic kidney disease, stage 3 unspecified; M54.9 Dorsalgia, unspecified; J45.909 Unspecified asthma, uncomplicated; F41.9 Anxiety disorder, unspecified; G89.29 Other chronic pain; E78.5 Hyperlipidemia, unspecified; E03.9 Hypothyroidism, unspecified; Z90.710 Acquired absence of both cervix and uterus; Z90.89 Acquired absence of other organs; Z98.890 Other specified postprocedural states; Z79.899 Other long term (current) drug therapy
CPT/HCPCS: 0241U; 36415; 71045; 80048; 80053; 83880; 84484; 85025; 93005; 93010; 93306; 94660; 94762; 96374; 97110; 97162; 99285-25; A9270; J1650; J1940

== ENCOUNTER 2022-04-10 16:44 | Emergency (ER) | payer OTHER, MEDICARE ==
[~2022-04-10] VITALS: Ht 160 cm; Wt 44.5 kg
[~2022-04-10 16:44] MED LIST changes: +ALPR.5 PO; +CARBIDOPA-LEVO1 EA15 PO; +CEFD300 PO; +CITALOPRAM HBR10 MG PO; +ESTRADIOL1 MG PO; +FURO40 PO; +KLOR-CON 1010 ME7 PO; +MELA3 PO; +SULFAMETHOXAZO1 EAC1 PO
== END 2022-04-10 20:21 | disposition home or self-care (01) ==
LOC: ER 16:44
DX: S01.111A Laceration without foreign body of right eyelid and periocular area, initial encounter (principal); S09.90XA Unspecified injury of head, initial encounter; I10 Essential (primary) hypertension; E78.5 Hyperlipidemia, unspecified; E03.9 Hypothyroidism, unspecified; K21.9 Gastro-esophageal reflux disease without esophagitis; W01.0XXA Fall on same level from slipping, tripping and stumbling without subsequent striking against object, initial encounter; Z79.899 Other long term (current) drug therapy
CPT/HCPCS: 70450; 90714; A9270

== ENCOUNTER → 2022-05-06 | Outpatient (CLI) | payer MEDICARE, OTHER ==
[2022-05-06 12:42] LABS: BASOPHILS ABSOLUTE AUTO 0.03 K/mm3 (0.00-0.23); BASOPHILS PERCENT AUTO 0 % (0-2); EOSINOPHILS ABSOLUTE AUTO 0.15 K/mm3 (0.00-0.68); EOSINOPHILS PERCENT AUTO 2 % (0-6); Hematocrit 39.3 % (33.0-51.0); Hemoglobin 13.2 g/dL (11.5-16.0); IMMATURE GRAN ABSOLUTE AUTO 0.13 K/mm3 (0.00-0.10); IMMATURE GRAN PERCENT AUTO 1 % (0-1); LYMPHOCYTES ABSOLUTE AUTO 1.76 K/mm3 (0.84-5.20); LYMPHOCYTES PERCENT AUTO 17 % (21-46); MONOCYTES ABSOLUTE AUTO 1.11 K/mm3 (0.16-1.47); MONOCYTES PERCENT AUTO 11 % (4-13); Mean Corpuscular HGB 33.7 pg (26.0-34.0); Mean Corpuscular HGB Conc 33.6 g/dL (31.5-36.5); Mean Corpuscular Volume 100 fL (80-100); Mean Platelet Volume 9.3 fL (9.1-12.4); NEUTROPHILS ABSOLUTE AUTO 7.02 K/mm3 (1.96-9.15); NEUTROPHILS PERCENT AUTO 69 % (41-73); Platelet Count 284 K/mm3 (150-400); RDW Coefficient Variation 15.7 % (11.7-14.2); RDW Standard Deviation 57.7 fL (35.1-46.3); Red Blood Cell Count 3.92 M/mm3 (3.80-5.20)
[2022-05-06 12:48] LABS: Bun/Creatinine Ratio 54.8 (12.0-20.0); Calcium, Blood 9.1 mg/dL (8.5-10.1); Creatinine, Blood 1.04 mg/dL (0.40-1.00); Potassium, Blood 3.2 mmol/L (3.5-5.5); Uric Acid, Blood 5.3 mg/dL (2.6-6.0)
== END | disposition home or self-care (01) ==
LOC: LAB SHORT 12:34 → LAB 12:34
PROVIDERS: General Practice
DX: M79.644 Pain in right finger(s) (principal); M79.645 Pain in left finger(s)
CPT/HCPCS: 80048; 84550; 85025; 85651

== ENCOUNTER 2022-05-12 18:40 | Inpatient (IN) | payer MEDICARE, OTHER ==
[~2022-05-12] VITALS: Ht 162.6 cm; Wt 49.9 kg
[~2022-05-12 18:40] MED LIST changes: +K-Dur20 MEQ PO; -KLOR-CON 1010 ME7 PO
[2022-05-12 19:34] LABS: BASOPHILS ABSOLUTE AUTO 0.01 K/mm3 (0.00-0.23); BASOPHILS PERCENT AUTO 0 % (0-2); EOSINOPHILS PERCENT AUTO 0 % (0-6); Hematocrit 34.9 % (33.0-51.0); Hemoglobin 11.8 g/dL (11.5-16.0); IMMATURE GRAN ABSOLUTE AUTO 0.11 K/mm3 (0.00-0.10); IMMATURE GRAN PERCENT AUTO 1 % (0-1); LYMPHOCYTES ABSOLUTE AUTO 1.32 K/mm3 (0.84-5.20); LYMPHOCYTES PERCENT AUTO 11 % (21-46); MONOCYTES ABSOLUTE AUTO 0.86 K/mm3 (0.16-1.47); MONOCYTES PERCENT AUTO 7 % (4-13); Mean Corpuscular HGB 33.3 pg (26.0-34.0); Mean Corpuscular HGB Conc 33.8 g/dL (31.5-36.5); Mean Corpuscular Volume 99 fL (80-100); Mean Platelet Volume 10.2 fL (9.1-12.4); NEUTROPHILS ABSOLUTE AUTO 9.61 K/mm3 (1.96-9.15); NEUTROPHILS PERCENT AUTO 81 % (41-73); NRBC ABSOLUTE 0.12 K/mm3 (0.00-0.02); Platelet Count 238 K/mm3 (150-400); RDW Coefficient Variation 16.2 % (11.7-14.2); RDW Standard Deviation 58.7 fL (35.1-46.3); Red Blood Cell Count 3.54 M/mm3 (3.80-5.20); White Blood Cell Count 11.91 K/mm3 (4.00-11.30)
[2022-05-12 20:59] LABS: Source, Urine Clean Catch
[2022-05-12 21:16] LABS: Appearance, Urine Hazy (Clear); Bilirubin, Urine Neg (Neg); Blood, Urine 1+ (Neg); Color, Urine Yellow (P-Yellow); Glucose Qualitative, Urine Neg (Neg); Ketones, Urine Neg (Neg); Leukocyte Esterase, Urine 2+ (Neg); Nitrite, Urine Neg (Neg); Protein, Urine Neg (Neg); Urobilinogen, Urine NORM (Normal)
[2022-05-12 21:30] LABS: Influenza A, PCR NEGATIVE (NEGATIVE); Influenza B, PCR NEGATIVE (NEGATIVE); Resp Syncytial Virus, PCR NEGATIVE (NEGATIVE)
[2022-05-12 21:35] LABS: Uric Acid Crystals Mod /hpf
[2022-05-12 21:36] LABS: Amorphous Mod (0-Heavy); Bacteria Mod /hpf; Hyaline Casts 0-2 /lpf (0-2); Mucus Light (0-Heavy); Red Blood Cells, Urine 0-2 /hpf (0-2); Squamous Epithelial Cells Rare /hpf (Few); Transitional Epithelial Cells Rare /hpf (0-Rare)
[2022-05-12 21:37] LABS: SARS-Cov-2 (COVID-19) PCR, MMC POSITIVE (NEGATIVE)
--- NOTE | 2022-05-13 00:40 | NUR ---
ADMISSION: PT IS A/OX 3-4. PT IS FROM [facility]. COVID +. THE PT WAS NOT ABLE TO GO OVER HER HOME MEDS, BUT STATED THAT SHE HAS A LIST W/ HER . SINCE ON THE FLOOR SHE HAS BEEN IN AFIB C/ RVR (RATES 120-160s) AND HER TROPONIN HAS ELEVATED FROM 123 TO 133. SHE DOES HAVE FLUIDS INFUSING @ 75 ML/HR. SHE IS A SBA TO THE BSC. WE CONTINUE TO MONITOR FREQUENTLY, THE ALARM IS SET FOR PATIENT SAFETY.
[2022-05-13 02:41] LABS: BASOPHILS ABSOLUTE AUTO 0.01 K/mm3 (0.00-0.23); BASOPHILS PERCENT AUTO 0 % (0-2); EOSINOPHILS ABSOLUTE AUTO 0.01 K/mm3 (0.00-0.68); EOSINOPHILS PERCENT AUTO 0 % (0-6); Hemoglobin 11.3 g/dL (11.5-16.0); IMMATURE GRAN ABSOLUTE AUTO 0.12 K/mm3 (0.00-0.10); IMMATURE GRAN PERCENT AUTO 1 % (0-1); LYMPHOCYTES ABSOLUTE AUTO 0.85 K/mm3 (0.84-5.20); LYMPHOCYTES PERCENT AUTO 7 % (21-46); MONOCYTES ABSOLUTE AUTO 1.09 K/mm3 (0.16-1.47); MONOCYTES PERCENT AUTO 9 % (4-13); Mean Corpuscular HGB 33.9 pg (26.0-34.0); Mean Corpuscular HGB Conc 33.2 g/dL (31.5-36.5); Mean Corpuscular Volume 102 fL (80-100); Mean Platelet Volume 10.2 fL (9.1-12.4); NEUTROPHILS ABSOLUTE AUTO 10.52 K/mm3 (1.96-9.15); NEUTROPHILS PERCENT AUTO 83 % (41-73); NRBC ABSOLUTE 0.16 K/mm3 (0.00-0.02); NRBC Auto 1.3 /100 WBC (0.0-0.2); Platelet Count 194 K/mm3 (150-400); RDW Coefficient Variation 16.1 % (11.7-14.2); RDW Standard Deviation 60.3 fL (35.1-46.3); Red Blood Cell Count 3.33 M/mm3 (3.80-5.20)
[2022-05-13 03:02] LABS: Albumin, Blood 2.8 g/dL (3.4-5.0); Albumin/Globulin Ratio 0.8 (0.8-1.8); Bilirubin, Total 0.9 mg/dL (0.1-1.0); Bun/Creatinine Ratio 66.4 (12.0-20.0); Calcium, Blood 8.7 mg/dL (8.5-10.1); Creatinine, Blood 1.43 mg/dL (0.40-1.00); Globulin, Blood 3.7 g/dL (2.2-4.0); Potassium, Blood 4.6 mmol/L (3.5-5.5); Total Protein, Blood 6.5 g/dL (6.4-8.2)
[2022-05-13 03:05] LABS: CPK Creatine Kinase 42 U/L (26-193)
--- NOTE | 2022-05-13 05:44 | NUR ---
PT CONTINUES TO BE IN AFIB RVR (RATES 120s-160s). THE MD WAS NOTIFIED AND 5MG IV LOPRESSOR WAS ORDERED. THE RN CALLED BACK TO VERIFY THAT MED WAS CORRECT DUE TO PREVIOUS LOW BPs AND THE MD DID VERIFY THE ORDER.
--- NOTE | 2022-05-13 07:24 | NUR ---
SHIFT SUMMARY: PT WAS GIVEN 5MG IV LOPRESSOR PRIOR TO SHIFT CHANGE AND SHE HAD C/O OF NAUSEA. THE DAYSHIFT RN WAS NOTIFIED AND THE PATIENT WAS GIVEN 4MG ZOFRAN. HER HR IS STILL FLUCTUATING FROM THE 110s-140s. SHE IS A/O AND ABLE TO ANSWER QUESTIONS APPROPRIATELY. THE DAYSHIFT RN WILL ASSUME CARE AT THIS POINT.
--- NOTE | 2022-05-13 07:50 | NUR ---
PT IN ROOM AT SHIFT CHANGE DURING BED REPORT C/O CHEST PAIN AND NAUSEA. PT REPORTED CHEST PAIN SHARP AND STABBING MID CHEST. VITALS 102/67, HR 119-150 PER TELE IN A-FIB. PT IS ALERT AND ABLE TO DESCRIBE SYMPTOMS. DR. WAYNE CALLED AND SBAR GIVEN. DR. WAYNE HERE NOW TO ASSESS.
--- NOTE | 2022-05-13 08:23 | NUR ---
VO RECEIVED TO KATHERYNE IV NS RATE TO 25 ML PER HOUR. COMPLETED AND PLACED ORDER. REPORT GIVEN TO PETEY WELCH IN PCU. PT TRANSFERRED TO PCU 7, TELE NOTIFIED OF TRANSFER.
--- NOTE | 2022-05-13 09:00 | NUR ---
PT ARRIVED TO PCU WITH NS INFUSING AT 25ML/HR PER NEW ORDRED RATE. HR HAS IMPROVED TO MID 110s AFIB UPON ARRIVAL. PT DENIES CP OR SOB ON ARRIVAL. CARDIZEM DRIP STARTED AT 5MG/HR PRESSURES ARE SOFT, PT'S BP HAS SIGNIFICANT DECREASE WITH CARDIAC PUSHES LAST NOC. PT MEDICATED ON ARRIVAL WITHOUT INICIDENT. PT A/O X3. FAMILY UPDATED ABOUT TRANSFER TO PCU
[2022-05-13 11:48] LABS: CPK Creatine Kinase 47 U/L (26-193)
[2022-05-13 12:10] LABS: Free Thyroxine 1.63 ng/dL (0.70-1.60)
[2022-05-13 12:12] LABS: Thyroid Stimulating Hormone 0.488 uIU/mL (0.360-4.800)
--- NOTE | 2022-05-13 17:42 | NUR ---
PT ARRIVED FROM MEDICAL FLOOR THIS MORNING WITH AFIB RVR. UPON ARRIVAL HR 118, PT A/O X3, ANSWERING QUESTIONS APPROPRIATELY IN FULL SENTNCES. SHE DENIES CP AND SOB UPON ARRIVAL TO THE UNIT, PT HAS REMAINED SOB AND CP FREE SINCE ARRIVAL. PT REMAINS ON 5MG/HR OF CARDIZEM WITH HR 90s-100s WITHOUT ANY TITRATION, DR WAYNE IS AWARE. VSS. NADN. SPOUSE IS UPDATED ON PT STATUS
--- NOTE | 2022-05-13 18:14 | NUR ---
PT AWOKE FROM NAP WAS CERAMIC ARTIST LIGHT, THIS RN TO ROOM PT BEGINS SCREAMING LOUDLY AT STAFF STATING THAT SHE HAS BEEN NEGELECTED ALL DAY, SHE IS ANGRY THAT SHE HAS TOO MANY BOXES OF TISSUES AND ANGRY THAT SHE HAS "THIS NEW PT THING" SHE IS WAVING CALL LIGHT IN THIS RN'S FACE. WHEN ASKED WHAT IS WRING SHE STS "YOU'RE STUPID YOU SHOULDN'T EVEN BE A NURSE, YOU'RE STUPID GET OUT" I AM LEAVING THE ROOM PT STS "I NEED HELP AND NO ONE IS HELPING ME" WHEN ASKED WHAT SHE NEEDS HELP WITH PT STS "IF YOU DON'T KNOW THEN YOU SHOULDN'T BE A NURSE, GET OUT" THIS RN LEFT ROOM. THIS IS A SUDDEN CHANGE IN BEHAVIOR JUST BEFORE 1800 THIS RN WAS IN ROOM HOLDING PT'S HAND, PT WAS TELLING THIS RN ABOUT HER 70 YEAR MARRIAGE TO SPOUSE.
--- NOTE | 2022-05-13 18:26 | NUR ---
DID NOT ANSWER. DR MONIQUE CALLED TO BE UPDATED ON PT'S SUDDEN MENTATION CHANGE
[2022-05-14 00:58] LABS: Source, Urine Foley catheter
[2022-05-14 01:05] LABS: Bilirubin, Urine Neg (Neg); Blood, Urine 4+ (Neg); Glucose Qualitative, Urine Neg (Neg); Ketones, Urine Neg (Neg); Leukocyte Esterase, Urine 2+ (Neg); Nitrite, Urine Neg (Neg); Protein, Urine Neg (Neg); Urobilinogen, Urine NORM (Normal)
[2022-05-14 01:35] LABS: Appearance, Urine Hazy (Clear); Color, Urine Yellow (P-Yellow)
[2022-05-14 01:36] LABS: Bacteria Few /hpf; Squamous Epithelial Cells Not Seen /hpf (Few); White Blood Cells, Urine 25-50 /hpf (0-5)
--- NOTE | 2022-05-14 06:34 | NUR ---
1937 - This RN entered room to check on pt and introduce self, pt states "No one has come in this room since 7am! What kind of place is this?" and "I haven't eaten all day." This RN offered food and reoriented pt to time of day. Pt only oriented to self and place. Pt requesting warm blanket and complaining of bilateral leg pain. PRN Tylenol offered and administered and 2 warm blankets applied per pt request. 2111- This RN rounded on pt after SBP in 80s. Cardizem gtt turned off at this time. Pt states she is asymptomatic. However, pt is agitated at this time. Pt states "they're just putting all these blankets on me so I can't move my legs" and "the doctor is going to hear about this! They're looking for things like this!" and "My paid GOOD money for me to be in here!" This RN removed blankets and attempted to redirect pt and provide therapeutic presence. Pt continues to yell at this RN about care and other staff members. This RN set boundaries about yelling and pt continued to raise voice and told this RN to leave room. Confirmed bed alarm was set and call light was within reach and exited room as requested. This RN rounded on pt frequently throughout the night, mood remained labile. Cardizem gtt remained off for HR staying under 120 and BP maintaining 90s-100s systolic. Other VSS, on RA. Pt slept poorly. Will continue to monitor and pass on to day RN
--- NOTE | 2022-05-14 13:36 | NUR ---
ATTEMPTED TO CALL SPOUSE, NO ANSWER
--- NOTE | 2022-05-14 18:50 | NUR ---
PT REMAINS CONFUSED T/O MOST OF THE DAY, UNTIL APPROX 1600 PT WAS REDIRECTABLE AND CALM, AROUND 1600 SHE BECAME VERY AGITATED SHE DID AT THE END OF MY LAST SHIFT. DR VELIZ CONSULTED AND NEW ORDERS WERE OBTAINED TO ADMINISTER SEROQUEL FOR AGITATION IN THE EVENING. PT DID TAKE PO MEDICATIONS WITHOUT ISSUE BUT WAS SCREAMING AT STAFF AND TELLING STAFF T/O THE ENTIRE MED PASS. OTHERWISE SHE REMAINS IN AFIB WITH RATE OF LOW 100S, PT HAS BEEN CHANGED TO PO DIGOXIN WHICH IS BEING TOLERATED WELL.
--- NOTE | 2022-05-15 17:38 | NUR ---
PT'S MENTATION HAS WAXED AND WANED T/O THE DAY, PT RANGES FROM CALM AND COOPERATIVE AND COMPLEMENTING STAFF TO SCREAMING AT STAFF AND DEMANDING THEY LEAVE AFTER CALLING THEM MANY NAMES. VSS. REMAINS IN A FIB WITH RATE IN THE 90s TO THE DAY, SHE IS TOLERATING DIGOXIN WELL. SEROQUEL DOES APPEAR TO BE HELPING IN THE EVENING PT WITH LESS CONFUSION IN THE EVENING LAST NOC. PT CONTINUES TO DENY CP, REPORTS "SOME" SOB. LINENS CHANGED, HALE AND FAISAL CARE PERFORMED. NO FURTHER CHANGES TO DISCUSS
[2022-05-16 04:09] LABS: BASOPHILS ABSOLUTE AUTO 0.01 K/mm3 (0.00-0.23); BASOPHILS PERCENT AUTO 0 % (0-2); EOSINOPHILS ABSOLUTE AUTO 0.12 K/mm3 (0.00-0.68); EOSINOPHILS PERCENT AUTO 1 % (0-6); Hematocrit 35.2 % (33.0-51.0); Hemoglobin 11.7 g/dL (11.5-16.0); IMMATURE GRAN ABSOLUTE AUTO 0.05 K/mm3 (0.00-0.10); IMMATURE GRAN PERCENT AUTO 1 % (0-1); LYMPHOCYTES PERCENT AUTO 17 % (21-46); MONOCYTES ABSOLUTE AUTO 1.17 K/mm3 (0.16-1.47); MONOCYTES PERCENT AUTO 13 % (4-13); Mean Corpuscular HGB 33.6 pg (26.0-34.0); Mean Corpuscular HGB Conc 33.2 g/dL (31.5-36.5); Mean Corpuscular Volume 101 fL (80-100); Mean Platelet Volume 9.8 fL (9.1-12.4); NEUTROPHILS ABSOLUTE AUTO 6.39 K/mm3 (1.96-9.15); NEUTROPHILS PERCENT AUTO 69 % (41-73); Platelet Count 183 K/mm3 (150-400); RDW Coefficient Variation 16.4 % (11.7-14.2); RDW Standard Deviation 60.1 fL (35.1-46.3); Red Blood Cell Count 3.48 M/mm3 (3.80-5.20); White Blood Cell Count 9.34 K/mm3 (4.00-11.30)
[2022-05-16 04:28] LABS: Albumin, Blood 2.5 g/dL (3.4-5.0); Albumin/Globulin Ratio 0.8 (0.8-1.8); Bilirubin, Total 0.5 mg/dL (0.1-1.0); Bun/Creatinine Ratio 42.8 (12.0-20.0); Calcium, Blood 7.9 mg/dL (8.5-10.1); Creatinine, Blood 0.68 mg/dL (0.40-1.00); Globulin, Blood 3.3 g/dL (2.2-4.0); Potassium, Blood 3.9 mmol/L (3.5-5.5); Total Protein, Blood 5.8 g/dL (6.4-8.2)
--- NOTE | 2022-05-16 06:41 | NUR ---
NOC SHIFT SUMMARY PT SLEPT WELL OVERNIGHT, ORIENTED TO SELF AND PLACE, DISORIENTED TO TIME AND SITUATION. COOPERATIVE W/LABILE MOOD. VSS PER PT TREND. CARDIZEM GTT STOPPED AT BEGINNING OF SHIFT D/T SBP IN 80S X1. GTT NOT RESTARTED AND HR MAINTAINING UNDER 120S CONSISTENTLY. AFIB ON TELEMETRY. HALE TO DD, CLEAR AND YELLOW. NO COMPLAINTS OF PAIN OR DISCOMFORT. WILL CONTINUE TO MONITOR AND PASS ON TO DAY RN
--- NOTE | 2022-05-16 10:36 | NUR ---
[place] of Care: Care assumed at 0700hr. Patient sleeping, but easily roused to verbal stimuli. Remains slightly drowsy when awake, oriented x4. Flat affect and slow to respond. Appears to have generalized weakness throughout. Denies pain, discomfort, SOB, or dyspnea. SpO2- 96% on RA, appears calm and comfortable. Heart rhythm shows A-flutter, rate-90's, BP WNL. Patient tolerates PO intake but has very poor apetite, only consuming a few bites of breakfast. Will attempt to sit patient at bedside this shift to better assess her strength and capability.
--- NOTE | 2022-05-16 12:56 | NUR ---
Update/N+V/HR: Patient given full bedbath at approx 1200hr. When finishing bedbath, patient began to c/o nausea. HR also increased from 90's to 140's (A-flutter), BP stable. Patient given prn zofran x1, but began vomiting approx 5 minutes after prn given. HR also increased to 160's-170's at that time. Cardizem gtt started at 5mg/hr and call placed to Dr. James. Received orders for prn Phenergan and to check Troponin level. Patient has since had x2more vomiting of yellow bile, x1 prn Phenergan 12.5mg given at this time. HR decreased to 120's-140's, BP remains stable. Troponin lab pending at this time. Call light in reach, makes needs known. Will continue to monitor.
--- NOTE | 2022-05-16 18:39 | NUR ---
Shift Summary: See previous notes r/t N/V and HR. Repeat troponin value resulted at 618, results called to Dr. James, order received for cardiology consult. Dr. Hadley called, updated on patient condition, and informed staff he would contact Dr. James, no other orders received. Patient continues to deny chest pain, dyspnea/SOB. Patient also began to c/o lower ABD pain/cramping, painful to palpation. Call placed to Dr. James, received order for CT ABD and pelvis. CT obtained without difficulty and results discussed with Dr. James at bedside. CT showed no obstructions or acute ABD findings. Dr. James discussed possible ultra sound of ABD to better assess galbladder, also discussed possible CTA to rule out ischemia. These scans to possible be obtained tomorrow, no new orders received at this time. X1 more prn zofran given late this shift. Also gave x1 pnr morphine for continue c/o abd pain. VS remained stable, Cardizem gtt at 5mg/hr. Report given to NOC shift RN.
[2022-05-17 04:06] LABS: BASOPHILS ABSOLUTE AUTO 0.03 K/mm3 (0.00-0.23); BASOPHILS PERCENT AUTO 0 % (0-2); EOSINOPHILS PERCENT AUTO 0 % (0-6); Hematocrit 41.3 % (33.0-51.0); Hemoglobin 13.8 g/dL (11.5-16.0); IMMATURE GRAN ABSOLUTE AUTO 0.12 K/mm3 (0.00-0.10); IMMATURE GRAN PERCENT AUTO 1 % (0-1); LYMPHOCYTES ABSOLUTE AUTO 0.61 K/mm3 (0.84-5.20); LYMPHOCYTES PERCENT AUTO 3 % (21-46); MONOCYTES PERCENT AUTO 6 % (4-13); Mean Corpuscular HGB 33.3 pg (26.0-34.0); Mean Corpuscular HGB Conc 33.4 g/dL (31.5-36.5); Mean Corpuscular Volume 100 fL (80-100); Mean Platelet Volume 9.6 fL (9.1-12.4); NEUTROPHILS ABSOLUTE AUTO 18.65 K/mm3 (1.96-9.15); NEUTROPHILS PERCENT AUTO 91 % (41-73); Platelet Count 203 K/mm3 (150-400); RDW Coefficient Variation 16.5 % (11.7-14.2); RDW Standard Deviation 60.3 fL (35.1-46.3); Red Blood Cell Count 4.14 M/mm3 (3.80-5.20); White Blood Cell Count 20.61 K/mm3 (4.00-11.30)
[2022-05-17 04:27] LABS: Albumin, Blood 2.8 g/dL (3.4-5.0); Albumin/Globulin Ratio 0.7 (0.8-1.8); Bilirubin, Total 0.9 mg/dL (0.1-1.0); Bun/Creatinine Ratio 27.9 (12.0-20.0); Creatinine, Blood 0.68 mg/dL (0.40-1.00); Globulin, Blood 4.1 g/dL (2.2-4.0); Potassium, Blood 3.5 mmol/L (3.5-5.5); Total Protein, Blood 6.9 g/dL (6.4-8.2)
--- NOTE | 2022-05-17 06:49 | NUR ---
SHIFT SUMMARY: PT DROWSY THROUGHOUT THE NIGHT BUT IS CONSISTANTLY ABLE TO WAKE TO GENTLE VERBAL STIMULUS. PT IS ORIENTED TO SELF ONLY BUT IS ABLE TO FOLLOW COMMANDS. PT ENDORSES LOWER ABDOMINAL PAIN, WITH TENDERNESS TO PALPATION IN ALL ABDOMINAL QUADRANTS BUT WORSE IN THE LOWER QUADRANTS. PT DENIES REBOUND TENDERNESS AND MODIFIED HEEL DROP TEST IS NEGATIVE FOR WORSENED PAIN. PT DOES HAVE PRESENT BOWEL TONES, THOUGH THEY ARE QUITE HYPOACTIVE. PT HAS REMAINED ON THE CARDIZEM DRIP AT 5 OVER NIGHT AND HR HAS BEEN FAIRLY WELL CONTROLLED WITH RATES MOSTLY 70-90'S. RHYTHM HAS VARRIED FROM A-FLUTTER TO SINUS ARRHYTHMIA. PT WAS NOT GIVEN ANY FURTHER PAIN MEDICATION OVER NIGHT DUE TO HER DROWSINESS, BUT SHE DID STATE THAT HER ABDOMINAL PAIN WAS BETTER THIS MORING HAVING GOF FROM 7 OUT OF 10 TO 3-4 OUT OF 10. PT WAS ALSO ABLE TO TOLLERATE SIPS OF WATER WITH HER PO SYNTHROID. PT HAD GOOD URINE OUT PUT OVER NIGHT.
--- NOTE | 2022-05-17 17:31 | NUR ---
SHIFT SUMMARY: PT SLEEPS OFTEN T/OUT MORNING, AROUSES EASILY TO STAFF IN ROOM BUT CONTINUES SLEEPY WHILE COOPERATING WITH CARE. THIS AFTERNOON, PT BECOMES MORE ALERT AND INVOLVED WITH CARE, GETS UP TO BSC TO ATTEMPT BM W/SBA. PT UNSUCCESSFUL W/BM BUT DOES REPORT FEELING INCREASED OVERALL FEELING. CONVERSATION HAD ABOUT GETTING UP TO CHAIR T/OUT THE DAY, PT VERBALIZES UNDERSTANDING AND INTENT BUT REQUESTS TO GET BACK IN BED. PT ASSISTED BACK TO BED, PROVIDED WITH ENSURE AND CONSUMES 100%. PT MEDICATED WITH PRN NAUSEA MEDICATION T/OUT DAY FOR C/O NAUSEA AND ABD PAIN, TOLERATING WELL. O2 SATS MAINTAINED >92% ON RA. AFIB ON MONITOR, RATE 80s-90s. PT TRANSITIONED TO PO DILTIAZEM AT 1209, DILTIAZEM GTT OFF AT 1320. 1/2 NS INFUSING AT 50 ML/HR. WILL CONTINUE TO MONITOR AND TREAT ACCORDINGLY UNTIL CHANGE OF SHIFT.
--- NOTE | 2022-05-17 19:24 | NUR ---
CARE ASSUMPTION: RECEIVED REPORT FROM NITHYA Owens RN. PATIENT ASLEEP IN BED, HR AND O2 WNL ON RA. PATIENT HAS NOT HAD BM. BED LOW WITH CALL LIGHT IN REACH.
--- NOTE | 2022-05-17 21:53 | NUR ---
UPDATE: SPOKE WITH SPOUSE SUNSHINE THIS PM TO UPDATE ON PATIENT STATUS. SPOUSE ASKED IF PATIENT WOULD COME HOME TOMORROW. INFORMED THIS RN DID NOT HAVE D/C ORDER AT THIS TIME. SPOUSE WILL COME TO VISIT AROUND 1500 TOMORROW. PATIENT WAS 2 PERSON ASSIST TO BSC THIS EVENING AND REPORTEDLY "VERY WEAK AND LETHARGIC" PER CNAS WHO ASSISTED.
[2022-05-18 05:04] LABS: BASOPHILS ABSOLUTE AUTO 0.03 K/mm3 (0.00-0.23); BASOPHILS PERCENT AUTO 0 % (0-2); EOSINOPHILS ABSOLUTE AUTO 0.01 K/mm3 (0.00-0.68); EOSINOPHILS PERCENT AUTO 0 % (0-6); Hematocrit 40.2 % (33.0-51.0); Hemoglobin 13.1 g/dL (11.5-16.0); IMMATURE GRAN ABSOLUTE AUTO 0.17 K/mm3 (0.00-0.10); IMMATURE GRAN PERCENT AUTO 1 % (0-1); LYMPHOCYTES ABSOLUTE AUTO 1.08 K/mm3 (0.84-5.20); LYMPHOCYTES PERCENT AUTO 4 % (21-46); MONOCYTES ABSOLUTE AUTO 1.96 K/mm3 (0.16-1.47); MONOCYTES PERCENT AUTO 8 % (4-13); Mean Corpuscular HGB 33.2 pg (26.0-34.0); Mean Corpuscular HGB Conc 32.6 g/dL (31.5-36.5); Mean Corpuscular Volume 102 fL (80-100); Mean Platelet Volume 10.1 fL (9.1-12.4); NEUTROPHILS ABSOLUTE AUTO 21.78 K/mm3 (1.96-9.15); NEUTROPHILS PERCENT AUTO 87 % (41-73); Platelet Count 207 K/mm3 (150-400); RDW Coefficient Variation 16.6 % (11.7-14.2); RDW Standard Deviation 62.4 fL (35.1-46.3); Red Blood Cell Count 3.95 M/mm3 (3.80-5.20); White Blood Cell Count 25.03 K/mm3 (4.00-11.30)
[2022-05-18 05:35] LABS: Albumin, Blood 2.6 g/dL (3.4-5.0); Albumin/Globulin Ratio 0.7 (0.8-1.8); Bilirubin, Total 0.7 mg/dL (0.1-1.0); Bun/Creatinine Ratio 39.5 (12.0-20.0); Creatinine, Blood 0.63 mg/dL (0.40-1.00); Globulin, Blood 3.9 g/dL (2.2-4.0); Magnesium, Blood 2.3 mg/dL (1.6-2.4); Potassium, Blood 3.2 mmol/L (3.5-5.5); Total Protein, Blood 6.5 g/dL (6.4-8.2)
--- NOTE | 2022-05-18 05:58 | NUR ---
SHIFT SUMMARY: PATIENT HR 90-120S T/O NIGHT, OTHER VS WNL ON RA. PATIENT K 3.[address] CATALINA RANDALL FOLLOWED UP ON PREVIOUS CALL TO UPDATE ORDERS TO PROCEED WITH AM DOSE OF POTASSIUM AND NOT GIVE 40 MEQ IV. PATIENT PLEASANT AND COOPERATIVE WITH CARE. NO ADVERSE EVENTS THIS SHIFT. BED LOW WITH CALL LIGHT IN REACH. WILL CONTINUE TO MONITOR AND REPORT TO ONCOMING RN.
--- NOTE | 2022-05-18 16:21 | NUR ---
SHIFT SUMMARY: PT MORE ALERT THIS AM AND T/OUT DAY, NAPS AFTER WORKING WITH PT/OT. O2 SATS MAINTAINED >92% ON RA, AFIB ON MONITOR W/RATE 80-90s, DENIES SOB OR CP/PRESSURE. PT REPORTS IMPROVED NAUSEA/ABD PAIN, TOLERATING PO INTAKE AND PREFERS ENSURE ENLIVE (VANILLA) OR ENSURE COMPLETE. PRINTING MACHINE OPERATOR TAPE RULES CONSULTED, DIET PROGRESSED TO FULL LIQUID. PT RESISTENT TO TURNS AND GETTING OUT OF BED DESPITE EDUCATION PROVIDED. PT REPOSITIONED TOLERATED, CATHETER CARE PROVIDED. PT SPOUSE UPDATED T/OUT DAY VIA TELEPHONE. AT THIS TIME, PT RESTING QUIETLY IN BED WITH CALL LIGHT WITHIN REACH. WILL CONTINUE TO MONITOR AND TREAT ACCORDINGLY UNTIL CHANGE OF SHIFT.
--- NOTE | 2022-05-18 20:32 | NUR ---
SHIFT SUMMARY: PATIENT ASLEEP IN BED AND OPENS EYES WHEN THIS RN SPEAKS TO HER. PATIENT STATES SHE DID NOT HAVE A GOOD DAY BECAUSE SHE'S STILL IN THE HOSPITAL. VS WNL ON RA. HALE DRAINING TO GRAVITY. BED LOW WITH CALL LIGHT IN REACH.
--- NOTE | 2022-05-18 20:45 | NUR ---
CARE ASSUMPTION: PATIENT ASLEEP IN BED BUT OPENS EYES WHEN THIS RN SPEAKS TO HER. PATIENT STATES SHE DIDN'T HAVE A GOOD DAY BECAUSE SHE IS STILL IN THE HOSPITAL. VS WNL ON RA. DENIES CHEST PAIN, SOB, OR N/V. HALE DRAINING TO GRAVITY. BED LOW WITH CALL LIGHT IN REACH.
[2022-05-19 04:22] LABS: BASOPHILS ABSOLUTE AUTO 0.02 K/mm3 (0.00-0.23); BASOPHILS PERCENT AUTO 0 % (0-2); EOSINOPHILS ABSOLUTE AUTO 0.04 K/mm3 (0.00-0.68); EOSINOPHILS PERCENT AUTO 0 % (0-6); Hematocrit 38.1 % (33.0-51.0); Hemoglobin 12.5 g/dL (11.5-16.0); IMMATURE GRAN PERCENT AUTO 1 % (0-1); LYMPHOCYTES ABSOLUTE AUTO 1.88 K/mm3 (0.84-5.20); LYMPHOCYTES PERCENT AUTO 9 % (21-46); MONOCYTES ABSOLUTE AUTO 1.58 K/mm3 (0.16-1.47); MONOCYTES PERCENT AUTO 8 % (4-13); Mean Corpuscular HGB 33.2 pg (26.0-34.0); Mean Corpuscular HGB Conc 32.8 g/dL (31.5-36.5); Mean Corpuscular Volume 101 fL (80-100); Mean Platelet Volume 9.5 fL (9.1-12.4); NEUTROPHILS ABSOLUTE AUTO 16.58 K/mm3 (1.96-9.15); NEUTROPHILS PERCENT AUTO 82 % (41-73); Platelet Count 199 K/mm3 (150-400); RDW Coefficient Variation 16.7 % (11.7-14.2); RDW Standard Deviation 61.7 fL (35.1-46.3); Red Blood Cell Count 3.76 M/mm3 (3.80-5.20)
[2022-05-19 04:44] LABS: Albumin, Blood 2.4 g/dL (3.4-5.0); Albumin/Globulin Ratio 0.7 (0.8-1.8); Bilirubin, Total 0.7 mg/dL (0.1-1.0); Bun/Creatinine Ratio 40.4 (12.0-20.0); C-REACTIVE PROTEIN, EXT RANGE 6.09 mg/dL (0.000-0.300); Calcium, Blood 8.1 mg/dL (8.5-10.1); Creatinine, Blood 0.72 mg/dL (0.40-1.00); Globulin, Blood 3.6 g/dL (2.2-4.0); Magnesium, Blood 2.1 mg/dL (1.6-2.4); Potassium, Blood 3.9 mmol/L (3.5-5.5)
--- NOTE | 2022-05-19 05:55 | NUR ---
SHIFT SUMMARY: PATIENT DENIES N/V/CHEST PAIN/SOB. VS WNL ON RA. HALE DRAINING YELLOW URINE TO GRAVITY. PATIENT BECAME AGITATED WITH STAFF DURING MIDNIGHT VITALS STATING "THERE ARE BOXES EVERYWHERE! I WANT THEM OUT!" WHEN SHE COULD NOT BE CONVINCED THE BOXES WEREN'T THERE THE STAFF TOLD HER THEY WOULD REMOVE THEM, BUT THEN SHE SAID, "NO, I WANT TO KNOW WHO PUT THEM HERE, HOW LONG THEY'VE BEEN HERE, AND WHAT IS IN THEM." STAFF LEFT TO GET A WARM BLANKET AND PATIENT WAS PLEASANT AND AGREEABLE UPON THEIR RETURN. PATIENT HAD A SIMILAR EVENT ~0430 WHEN SHE BEGAN CALLING OUT FOR HELP. SHE WAS SIDEWAYS IN BED AND SAID SHE COULDN'T USE THE CALL LIGHT BECAUSE THE POWER WAS OUT AND "IT WON'T WORK IF THE POWER IS OUT." ASSURED PATIENT THE POWER WAS NOT OUT, REPOSITIONED HER IN BED, OFFERED AN ENSURE COMPLETE, AND TURNED THE LIGHTS ON. PATIENT IS VERY WEAK THIS MORNING AND WAS UNABLE TO ASSIST WITH TURNS OR LIFTING HER LEGS. PATIENT REFUSED PASSIVE OR ACTIVE ROM EXERCISES. VERBALIZED UNDERSTANDING THAT THE EXERCISES WOULD HELP HER FROM BECOMING TOO STIFF. PATIENT RESTING IN BED WITH CALL LIGHT IN PLACE AND BED IN LOWEST POSITION. WILL CONTINUE TO MONITOR AND REPORT TO ONCOMING RN.
[2022-05-19 08:40] LABS: C DIFFICILE DNA Formed (Negative)
--- NOTE | 2022-05-19 18:11 | NUR ---
TRANSFER/SHIFT SUMMARY: PT MORE ALERT THIS MORNING T/OUT THE DAY WITH A COUPLE SHORT NAPS. PT W/ONE EPISODE OF AGITATION, APPEARED TO BE RELATED TO PLACEMENT OF LUNCH TRAY AND BLANKETS. OTHER THAN THE EPISODE OF AGITATION, PT HAS BEEN COOPERATIVE W/CARE, CONTINUES RESISTANT TO GETTING UP OUT OF BED W/STAFF EVEN THOUGH SHE STATES SHE WANTS TO GO HOME AND CONVERSATIONS HAD ABOUT NEED FOR PT TO WORK ON BUILDING STRENGTH. PT ABLE TO ASSIST SOME WITH TURNS, ABLE TO FEED SELF, ANSWERS QUESTIONS APPROPRIATELY. O2 SATS >92% ON RA, AFIB ON MONITOR W/RATE CONTROLLED 80s-90s. HALE CATHETER CONTINUES PATENT, DRAINING TO GRAVITY. PT TRANSFERED TO MEDICAL DEPT, REPORT GIVEN TO YURI ALMARAZ. SUNSHINE, SPOUSE, HAS BEEN UPDATED VIA TELEPHONE CALL. PT TRANSFERED TO MEDICAL DEPT APPROX [id number].
--- NOTE | 2022-05-19 18:18 | NUR ---
SHIFT SUMMARY: PT TRANSFERRED FROM PCU THIS AFTERNOON. PT IS LETHARGIC BUT ROUSES EASILY. PLAN IS FOR DC TO SNF. ON RA AND TELE. NO ACUTE NEEDS AT THIS TIME.
[2022-05-20] MEDS ORDERED: METOPROLOL SUCC25 MG PO (05:05)
[2022-05-20] MEDS ORDERED: OMEP20ER PO (05:08)
[2022-05-20] MEDS ORDERED: CARBIDOPA-LEVO1 EA15 PO (05:09)
[2022-05-20 05:53] LABS: BASOPHILS ABSOLUTE AUTO 0.02 K/mm3 (0.00-0.23); BASOPHILS PERCENT AUTO 0 % (0-2); EOSINOPHILS ABSOLUTE AUTO 0.11 K/mm3 (0.00-0.68); EOSINOPHILS PERCENT AUTO 1 % (0-6); Hematocrit 35.2 % (33.0-51.0); Hemoglobin 11.6 g/dL (11.5-16.0); IMMATURE GRAN ABSOLUTE AUTO 0.07 K/mm3 (0.00-0.10); IMMATURE GRAN PERCENT AUTO 1 % (0-1); LYMPHOCYTES ABSOLUTE AUTO 2.42 K/mm3 (0.84-5.20); LYMPHOCYTES PERCENT AUTO 16 % (21-46); MONOCYTES ABSOLUTE AUTO 1.16 K/mm3 (0.16-1.47); MONOCYTES PERCENT AUTO 8 % (4-13); Mean Corpuscular Volume 100 fL (80-100); Mean Platelet Volume 9.7 fL (9.1-12.4); NEUTROPHILS ABSOLUTE AUTO 11.68 K/mm3 (1.96-9.15); NEUTROPHILS PERCENT AUTO 76 % (41-73); Platelet Count 169 K/mm3 (150-400); RDW Coefficient Variation 16.9 % (11.7-14.2); RDW Standard Deviation 61.3 fL (35.1-46.3); Red Blood Cell Count 3.52 M/mm3 (3.80-5.20); White Blood Cell Count 15.46 K/mm3 (4.00-11.30)
[2022-05-20 06:09] LABS: HBSAG SCREEN Negative (Negative); HCV AB <0.1 (0.0-0.9); HEP A AB, IGM Negative (Negative); HEP B CORE AB, IGM Negative (Negative)
[2022-05-20 06:23] LABS: Albumin, Blood 2.2 g/dL (3.4-5.0); Albumin/Globulin Ratio 0.6 (0.8-1.8); Bilirubin, Total 0.8 mg/dL (0.1-1.0); C-REACTIVE PROTEIN, EXT RANGE 6.27 mg/dL (0.000-0.300); Calcium, Blood 8.2 mg/dL (8.5-10.1); Creatinine, Blood 0.86 mg/dL (0.40-1.00); Globulin, Blood 3.4 g/dL (2.2-4.0); Magnesium, Blood 2.3 mg/dL (1.6-2.4); Potassium, Blood 4.3 mmol/L (3.5-5.5); Total Protein, Blood 5.6 g/dL (6.4-8.2)
--- NOTE | 2022-05-20 07:30 | NUR ---
ASSUMED CARE: PT RESTING AT THIS TIME ON RA. AFIB ON TELE AT 77. NO ACUTE NEEDS OR CONCERNS AT THIS TIME.
--- NOTE | 2022-05-20 07:37 | NUR ---
PT OVERNIGHT NOTED WITH PERIODS OF CONFUSION NOT WANTING TO ANSWER QUESTIONS STATING "I DON'T KNOW NOW." PT ALSO YELLING AT STAFF THAT WE ARE NOT HELPING HER AND WHEN ASKED WHAT SHE NEEDS SHE YELLS "YOU'VE BEEN YELLING AT ME ALL THIS TIME." EXPLAINED TO PT THAT I HAD NOT BEEN LESS THAN A MINUTE IN HER ROOM AND THAT I HAD NOT YELLED AT HER. PT STATING "I NEED YOU TO DO THIS NOW." WHEN ASKED WHAT IT WAS PT NOT NATHAN TO VERBALIZE. PT THIS MORNING FINALLY WILLING TO ANSWER QUESTIONS. PT ALERT TO SELF AND PLACE ONLY.
--- NOTE | 2022-05-20 16:17 | NUR ---
DR ROBERTSON HAD MEETING WITH PT AND FAMILY AND STATED THAT PT IS INTERESTED IN PALLIATIVE ROUTE. HE DISCUSSED WITH DC AIRLINE CAPTAIN WHO WILL MAKE APPROPRIATE REFERRALS. SUPERVISOR PRESS ROOM STATES SHE WILL DISCUSS WITH PALLIATIVE CARE WELL.
--- NOTE | 2022-05-20 18:37 | NUR ---
SHIFT SUMMARY: DR ROBERTSON HAD CONVERSATION WITH PT AND REGARDING GOALS OF CARE. PT WISHES TO PURSUE PALLIATIVE CARE OPTIONS. CARE MANAGEMENT AWARE. PT LIKELY DC'D ON HH WHEN STABLE FOR DC. PT HAS BEEN LETHARGIC ALL SHIFT, NOT PARTICIPATING IN CARE, POOR APPETITE
[2022-05-21 05:22] LABS: BASOPHILS ABSOLUTE AUTO 0.02 K/mm3 (0.00-0.23); BASOPHILS PERCENT AUTO 0 % (0-2); EOSINOPHILS ABSOLUTE AUTO 0.15 K/mm3 (0.00-0.68); EOSINOPHILS PERCENT AUTO 1 % (0-6); Hematocrit 36.8 % (33.0-51.0); IMMATURE GRAN ABSOLUTE AUTO 0.05 K/mm3 (0.00-0.10); IMMATURE GRAN PERCENT AUTO 1 % (0-1); LYMPHOCYTES ABSOLUTE AUTO 2.37 K/mm3 (0.84-5.20); LYMPHOCYTES PERCENT AUTO 22 % (21-46); MONOCYTES ABSOLUTE AUTO 1.27 K/mm3 (0.16-1.47); MONOCYTES PERCENT AUTO 12 % (4-13); Mean Corpuscular HGB 32.5 pg (26.0-34.0); Mean Corpuscular HGB Conc 32.6 g/dL (31.5-36.5); Mean Corpuscular Volume 100 fL (80-100); Mean Platelet Volume 9.8 fL (9.1-12.4); NEUTROPHILS ABSOLUTE AUTO 7.14 K/mm3 (1.96-9.15); NEUTROPHILS PERCENT AUTO 65 % (41-73); Platelet Count 190 K/mm3 (150-400); Red Blood Cell Count 3.69 M/mm3 (3.80-5.20)
[2022-05-21 05:46] LABS: Albumin, Blood 2.3 g/dL (3.4-5.0); Anion Gap 7 mmol/L (6-16); Blood Urea Nitrogen 36 mg/dL (8-24); Bun/Creatinine Ratio 40.3 (12.0-20.0); CO2, Blood 34 mmol/L (21-32); Calcium, Blood 8.6 mg/dL (8.5-10.1); Chloride, Blood 97 mmol/L (98-108); Creatinine, Blood 0.89 mg/dL (0.40-1.00); Glomerular Filtration Rate 62 (60-); Glucose, Blood 74 mg/dL (70-99); Magnesium, Blood 2.5 mg/dL (1.6-2.4); Phosphorus, Blood 3.6 mg/dL (2.5-4.9); Potassium, Blood 4.4 mmol/L (3.5-5.5); Sodium, Blood 138 mmol/L (136-145)
--- NOTE | 2022-05-21 06:52 | NUR ---
PT ALERT TO SELF AND PLACE, AT TIMES PLEASANTLY CONFUSED AND AT OTHERS YELLING FOR HELP. WHEN PT ASKED WHAT WE CAN HELP HER WITH SHE REPLIES NOTHING. PT WITH ALEXIA FLOWING TO GRAVITY. NO NEW CHANGES NOTED THIS SHIFT.
[2022-05-21 10:10] LABS: ANTIMYELOPEROXIDASE (MPO) ABS <0.2 units (0.0-0.9); ANTIPROTEINASE 3 (PR-3) ABS <0.2 units (0.0-0.9); ATYPICAL PANCA <1:20 titer (Neg:<1:20); CYTOPLASMIC (C-ANCA) <1:20 titer (Neg:<1:20); PERINUCLEAR (P-ANCA) <1:20 titer (Neg:<1:20)
--- NOTE | 2022-05-21 11:30 | NUR ---
PT WORKED WITH JAN ROMEO TODAY, SAT ON EDGE OF BED. PER BRYON REPORT, PT WAS ABLE TO DRINK A CARTON OF COLD MILK, WITH CUEING AND REMINDERS TO DRINK. PT FED HERSELF SOME GARCÍA JELLO, REQUIRED CUEING. PT STATES SHE IS WILLING TO WORK WITH OT, PER REPORT. EARLIER THIS SHIFT, PT WAS REFUSING THERAPY AND OFFERS OF BATHING FROM HONING MACHINE OPERATOR.
--- NOTE | 2022-05-21 12:09 | NUR ---
PHONE CALL FROM - IS REQUESTING A PHONE CALL FROM CARE MANAGEMENT TO DISCUSS DISCHARGE PLANS. RN UPDATED ISIDRO HAQUE, WHO STATED SHE WOULD CALL TO DISCUSS WITH SPOUSE. NO DISCHARGE ORDERS YET IN COMPUTER.
--- NOTE | 2022-05-21 13:20 | NUR ---
PHONE CALL TO DR WAYNE - PT UNABLE TO SWALLOW CARDIZEM PILL OR POTASSIUM. PHARMACY RECOMMENDED TO SWITCH CARDIZEM ER TO CARDIZEM IR, WHICH CAN BE CRUSHED AND MADE EASIER TO SWALLOW. DR. WAYNE WITH PLANS TO REVIEW MEDICATIONS WITH PT'S SPOUSE TODAY, AND CONSIDER TREATMENT GOALS.
--- NOTE | 2022-05-21 13:39 | NUR ---
PT BANGING HER FORK ON HER TRAY. RN ENTERED ROOM, PT STATED, "YOU CAN'T LEAVE ME ALONE IN HERE ALL DAY. I NEED SOMEONE TO SIT WITH ME." RN INFORMED PT, SHE IS UNABLE TO SIT WITH PT ALL DAY, BUT CAN TAKE SOME TIME TO ENCOURAGE PT TO EAT. PT IS ABLE TO FEED HERSELF, BUT WILL NOT EAT INDEPENDENTLY. REQUIRES FEEDING CUES AND EXTERNAL MOTIVATION TO EAT. PT LIKES RED JELLO.
--- NOTE | 2022-05-21 16:21 | NUR ---
SHIFT SUMMARY PT IS EAGER TO GO HOME. INITIALLY REFUSED ALL PERSONAL CARE OFFERED BY TUBE TELLER. PT DID PARTICIPATE IN OT AND PT THERAPY. PT REPORTS SHE IS A STAND AND PIVOT WITH STAND BY ASSIST. SHE IS VERY AFRAID OF FALLING. PT'S IS EAGER TO TAKE HER HOME, AND UNDERSTANDS THAT [facility] WILL NOT BEGIN SERVICES UNTIL THURSDAY 05/24. PT FRAIL, THIN WOMAN WITH HX OF 30LB UNINTENTIONAL WEIGHTLOSS IN THE MONTH PRIOR TO ADMISSION. AMELIA STATES THAT SHE WANTS SOMEONE TO SIT WITH HER IN THE ROOM, TO FEED HER/ENCOURAGE HER TO EAT. DECREASED PO INTAKE, ALTHOUGH UNABLE TO STATE TO DIETITIAN WHAT FOODS SHE WOULD LIKE TO EAT. SHE LIKES RED JELLO. UNABLE TO SWALLOW LARGER PILLS THIS AM. ROOM AIR. TELEMETRY REPORTS A-FIB AT 100.
--- NOTE | 2022-05-21 17:08 | NUR ---
PHONE CALL FROM PT'S SPOUSE - HE IS WANTING TO KNOW WHEN SHE CAN GO HOME. PER CARE MANGEMENT NOTE, [facility] HAS ATTEMPTED TO CONTACT BUT HAS NOT RECEIVED A RETURN PHONE CALL. [facility] IS UNABLE TO GUARANTEE IF SERVICES WILL BEGIN ON TUESDAY DUE TO APPT AVAILABILITY WITH THEIR NURSE PRACTITIONER. PER CARE MANAGEMENT NOTE, DR. WAYNE WANTED TO CONFIRM WITH SPOUSE THAT HE IS OK WITH THAT. RN WILL F/U WITH DR. WAYNE.
--- NOTE | 2022-05-21 17:14 | NUR ---
RN ATTEMPTED TO CALL PT'S AT PHONE NUMBER PROVIDED, . UNFORTUNATELY HIS VOICEMAIL BOX HAS NOT BEEN SET UP YET. ATTEMPTING TO CONFIRM THAT HE IS OK WITH DISCHARGE EVEN IF SERVICES CAN'T CONFIRM THEY WILL START ON TUESDAY.
--- NOTE | 2022-05-21 18:52 | NUR ---
SPOKE TO VIA TELEPHONE - RN GAVE THE NUMBER TO [facility] WITH A REQUEST TO CALL [facility] TO SET UP APPT TO BEGIN SERVICES. VERY SHORT AND IRRITATED WITH STAFF. RN ADVISED TO SET UP VOICEMAIL BOX IT WOULD MAKE COMMUNICATING/ORGANZING DISCHARGE PROCESS EASIER. DR. WAYNE STATED PROBABLE DISCHARGE TOMORROW, LONG FEELS HE CAN CARE FOR UNTIL [facility] SERVICES ARE ABLE TO BEGIN. STATED HE WILL VISIT HIS TOMORROW DURING VISITING HOURS.
--- NOTE | 2022-05-22 00:52 | NUR ---
PT BP 95/52 PER CHART REVIEW PT WITH SOFT BP TODAY. PT ASYMPTOMATIC. PT CARDIZEM HELD PER PARAMETER. PER RESTAURANT WORKER PT ON TELE AFIB RVR RANGE 100-[address] MONIQUE MADE AWARE. PER MD MONITOR BP AND HR FOR NOW AND NOTIFY IF MAP <65. BP 95/57 (MAP 70). WILL MONITOR CLOSELY.
--- NOTE | 2022-05-22 07:31 | NUR ---
PT BP DID IMPROVE HOWEVER SBP STILL <110. PT HALE IN PLACE. CALLED FOR UPDAT AND PER HE STATES HE WILL COME BY THIS MORNING TO SPEAK WITH MD AND HOPEFULLY TAKE HER HOME. ON TELE PT REMAINS IN AFIB RVR.
--- NOTE | 2022-05-22 17:32 | NUR ---
DR CONTACTED ABOUT PT HYPOTENSION, INSTRUCTED TO HOLD MEDS. CAN ADMIN SEROQUEL @ A LATER TIME IF NEEDED.
--- NOTE | 2022-05-22 18:25 | NUR ---
SHIFT SUMMARY PT A&OX3, SELF, SURROUNDS, TOWN. MOOD UP AND DOWN T/O SHIFT. PT SPOUSE IN TO SEE HER DURING VISITING HOURS. CODE STATUS CHANGED TO DNR. PT SON CONTACTED THIS RN FOR UPDATE. CONTACTED FAMILY SEVERAL TIMES T/O SHIFT REGAURDING CODE STATUS, CARE PROVIDED/PLAN OF ACTION. CALL LIGHT W/IN REACH. HYPOTENSION NOTED AND REPORTED TO EATING MIN AMOUNT OF MEALS, W/ REMINDERS.
--- NOTE | 2022-05-23 04:17 | NUR ---
PER FILE CLERK DATA ENTRY PT HAD 8 BEATS OF NONSUSTAINED SVT. PT ASYMPTOMATIC, VS WITHIN HER RECENT TREND. AT THIS TIME PT ONLY COMPLAINED OF LEFT THUMB HURTING. MEDICATED WITH TYLENOL AND PT REPORT GREAT RELIEF. DR. ALEXANDER NOTIFIED WITH ORDER FOR Mg LAB DRAW IN AM. INITIALLY PT VERBALLY AGGRESSIVE CURSING AT STAFF AND YELLING TO GET OUT FOR NO REASON. PT EDUCATED REGARDING APPROPRIATE BEHAVIOR AND PLAN OF CARE AND SINCE HER BEHAVIOR HAS GREATLY IMPROVED FOR NOW. OTHERWISE PT REMAINS WITH SOFT BP. DID RECEIVE CARDIZEM AT HS HER BP WAS 103/62. PT CALLED FOR UPDATE REGARDING AND REPORTS HE WILL BE BACK TOMORROW TO MEET WITH DOCTOR. TURNED Q2H.
--- NOTE | 2022-05-23 10:30 | NUR ---
Medical POA is son, Isaias [phone]. Pt/ with cognitive impairment. - Summary of multiple case conferences t/o am and visit to pt. Met with prior to visit with full update on current status and goals received. Pt was initially admitted >10 days ago with NSTEMI, afib/RVR, UTI & new finding of covid + (without resp s/s). She also has PMH of parkinsons, memory loss/cognitive dysfunction, chronic back pain, 30# wt loss recently, D-CHF, asthma, recent frequent falls. Pt has not improved/progressed and has declined in mentation and overall condition over the last couple of days. has been in contact with pt's son already this am and discussed d/c home with hospice as soon as that can be arranged. No CM available on Tuesday, however, speech therapist technician able to fax referral and make contact with [facility], who can admit pt to Hospice tomorrow. We will leave message for CM to request assist with f/u for d/c planning, including arranging transport home by w/c van prior to 11 am tomorrow. [facility] planning to admit to services after 11 am. Pt is a one person assist to stand, take steps, pivot or transfer. At this time, she would not need a hospital bed and other DME delivered prior to d/c home to her cottage at [facility], where she lives with her . Son, Isaias, is pt's medical POA, due to pt's and her 's cognitive impairment. T/c to son after my visit. He recently moved his parents, who'd been struggling in their home, to [facility]. He stayed with them for months to assist with this change/transition. [place] had recently returned to [place] here early Tuesday am. He is in full agreement/support of pt's desire to return home [place] with goal of not returning to the hospital. Just prior to entering pt's room I heard pt wailing and calling out loudly for help. Pt is in enhanced resp isolation due to covid infection. Pt in bed, anxious, expressing feeling scared and hyperventilating with increased resp rate. She did not know where she was or how long she had been here. She was easily calmed with conversation and explanation of where she was, why she was here. Shades opened completely for better daytime view and reorientation. Pt appears very thin, emaciated and frail. She is sl dyspnic with nonverbal indicators of anxiety and reported anxiety/distress. She has wet attends on that were changed with transfer to chair. Redness noted over bony prominences of backbone. Dressing on coccyx intact and secure. Pt cont to say, "Help me". RN and I assisted pt to chair. She is able to reposition herself to edge of bed with minimal assist. Old bruising noted under right eye. Pt repeatedly saying, "I've been in this bed for hours. When can I go home?" I assured her we were working on getting care in place for her to be able to go home. I spent some time talking to her, providing personal care and reassuring her. Report to RN, son and Dr on my visit. VO obtained for comfort care with minimal changes to eMAR and tx plan. Goal is to optimize pt's cardiac and general function as much as possible with only medication adjustment prn for return home with hospice in hopes of pt having some remaining good days at home with her family despite poor fdc prognosis and desire to remain at home. Her hospice dx is protein jos malnutrition, parkinsons, Diastolic CHF a-fib and impaired cognition. Pt is able to swallow PO medications currently. She has little to no appetite and minimal PO intake accomplished only with great encouragement from staff. Chief s/s noted is anxiety and agitation, sl dyspnea. See new VO for ativan prn. Coordinated with pt's RN, , insulation cupola charger, son and [facility] for dc tentatively tomorrow am. CM left message re: above.
--- NOTE | 2022-05-23 10:48 | NUR ---
PATIENT PLACED ON COMFORT CARE. ASSISTED BACK TO BED FROM CHAIR. LINENS CHANGED AND PATIENT OFFERED PO FLUIDS. BED ALARM SET FOR SAFETY. PATIENT ANXIOUS AT TIMES, BUT CALMS WITH CONVERSATION. CALL LIGHT WITHIN REACH.
--- NOTE | 2022-05-23 14:00 | NUR ---
PATIENT ASSISTED TO REPOSITION AND PO FLUIDS GIVEN. PATIENT DENIES ANY PAIN. ANXIETY MUCH IMPROVED AFTER RECEIVING ATIVAN. BED ALARM SET FOR SAFETY. PATIENT DENIES ANY NEEDS AT THIS TIME.
--- NOTE | 2022-05-23 17:56 | NUR ---
PATIENT CONTINUES TO HAVE A POOR APPETITE, DOES BEST WHEN ASSISTED AND ENCOURAGED. BOWEL CARE ORDERS PLACED TO DAY. NO BM CHARTED SINCE 05/19. PATIENT WILLING TO TAKE MIRALAX, BUT WANTED TO HOLD OFF ON SUPPOSITORY FOR NOW. DID RECEIVE A DOSE OF TYLENOL TODAY FOR "RECTAL PAIN." PLAN IS TO D/C TOMORROW AM HOME WITH [facility].
--- NOTE | 2022-05-24 03:22 | NUR ---
3RD PRESSMAN SUMMARY HAS BEEN RESTING QUIETLY WITH OCCASIONAL COUGH SINCE HS. BP LOW. ABLE TO REPOSITION SELF NEEDED, BUT STAFF ASSISTED WELL. CALLED DURING SHIFT, UPDATE GIVEN. VOICED SHE WAS TO BE DISCHARGED TO HOME WITH HIM (ON HOSPICE). REMAINS ON COMFORT CARE. ISOLATION FOR COVID PRECAUTIONS MAINTAINED. CALL LIGHT IN REACH.
--- NOTE | 2022-05-24 05:37 | NUR ---
TELE CALLED, HR MORE RAPID AND THEN [facility]. PT VOICED NAUSEA, SEEMED A LITTLE ANXIOUS. DENIED CHEST PAINS. RECEIVED ANTINAUSEA MED AND SEEMED TO CALM DOWN. CALL LIGHT IN REACH.
--- NOTE | 2022-05-24 06:43 | NUR ---
DR MIRANDA HERE, VOICED PT TO BE DISCHARGED THIS AM. WAS NOTIFIED OF MED TELE OF [facility] EARLIER. AND OF PT RECVEIVING ATIVAN A FEW MINUTES AGO FOR ANXIETY.
--- NOTE | 2022-05-24 08:21 | NUR ---
pt resting quietly in bed with eyes closed, no s/s of distress, will reposition and offer nutrition, call light in reach.
[2022-05-24] MEDS ORDERED: LORA.5 PO (09:17)
[2022-05-24] MEDS ORDERED: DILT30 PO (09:17)
[2022-05-24] MEDS ORDERED: Seroquel Xr50 MG PO (09:21)
--- NOTE | 2022-05-24 11:31 | NUR ---
pt is discharged to home with homehealth/hospice, will transport via wheelchair, she is very happy to be going home, iv removed intact, tele removed. she has been changed and ready for pickup. new meds have been faxed to pharmacy.
--- NOTE | 2022-05-24 12:08 | NUR ---
pt transport here, two person to assist her in the wheelchair she stood pretty well, discharge paper work given to transport along with hard script for ativan. pt left with her belongings with transport.
== END 2022-05-24 12:18 | disposition hospice, home (50) | DRG 280 ==
LOC: ER 18:40 → PCU 22:06 → MEDS 22:06 → ER 23:08 → MEDS 23:30 → PCU 05-13 08:28 → MEDS 05-19 16:56 → ENPENDDIS 05-24 09:41 → MEDS 05-24 12:18
PROVIDERS: Family Medicine; Internal Medicine; Student in an Organized Health Care Education/Training Program; ADMIT Internal Medicine
PROC: 8E0ZXY6 Isolation (ICD-10-PCS; principal; 2022-05-12)
DX: I48.91 Unspecified atrial fibrillation (principal); E43 Unspecified severe protein-calorie malnutrition; I21.A1 Myocardial infarction type 2; U07.1 COVID-19; N39.0 Urinary tract infection, site not specified; I13.0 Hypertensive heart and chronic kidney disease with heart failure and stage 1 through stage 4 chronic kidney disease, or unspecified chronic kidney disease; D68.59 Other primary thrombophilia; I50.32 Chronic diastolic (congestive) heart failure; N17.9 Acute kidney failure, unspecified; Z68.1 Body mass index [BMI] 19.9 or less, adult; Z66 Do not resuscitate; E86.0 Dehydration; Z51.5 Encounter for palliative care; I95.9 Hypotension, unspecified; K80.20 Calculus of gallbladder without cholecystitis without obstruction; K21.9 Gastro-esophageal reflux disease without esophagitis; E03.9 Hypothyroidism, unspecified; E78.00 Pure hypercholesterolemia, unspecified; D64.9 Anemia, unspecified; F41.9 Anxiety disorder, unspecified; G20 Parkinson's disease; R62.7 Adult failure to thrive; M54.9 Dorsalgia, unspecified; G89.29 Other chronic pain; J45.909 Unspecified asthma, uncomplicated; M85.80 Other specified disorders of bone density and structure, unspecified site; K12.1 Other forms of stomatitis; M19.90 Unspecified osteoarthritis, unspecified site; I27.20 Pulmonary hypertension, unspecified; F32.A Depression, unspecified; R29.6 Repeated falls; N18.31 Chronic kidney disease, stage 3a; R41.3 Other amnesia; E87.70 Fluid overload, unspecified; Z79.02 Long term (current) use of antithrombotics/antiplatelets; Z79.01 Long term (current) use of anticoagulants; R54 Age-related physical debility; D72.829 Elevated white blood cell count, unspecified; Z87.39 Personal history of other diseases of the musculoskeletal system and connective tissue; R74.01 Elevation of levels of liver transaminase levels; Z79.899 Other long term (current) drug therapy; Z86.010 Personal history of colon polyps; Z79.2 Long term (current) use of antibiotics; Z98.890 Other specified postprocedural states; Z90.710 Acquired absence of both cervix and uterus; Z90.722 Acquired absence of ovaries, bilateral
CPT/HCPCS: 0241U; 36415; 71045; 74177; 80053; 80069; 80074; 81001; 82550; 83516; 83520; 83605; 83690; 83735; 83880; 84145; 84439; 84443; 84484; 85025; 85060; 85651; 86037; 86140; 87086; 93005; 93010; 93975; 96361; 96374; 96375; 97110; 97162; 97166; 97530; 97535; 99285-25; A9270; J0696; J1644; J1650; J1940; J2270; J2405; J2550; J7030; Q9967